=== PATIENT | male | born 1985 | race Caucasian/White ===

== ENCOUNTER 2020-09-14 14:56 | Emergency (ER) | payer MEDICAID, SELFPAY ==
[2020-09-14 15:00] VITALS: BP 173/89; PULSE 83; RESP 20; TEMP 36.4; O2SAT 99; BMI 35.2
[2020-09-14 17:07] LABS: Basophils Percent Auto 0.2 % (0-2); Eosinophils Percent Auto 0.2 % (0-4); Hematocrit 43.2 % (42-52); Hemoglobin 14.6 g/dl (14.0-18.0); Imm Gran Abs Auto 0.06 X10*3/uL (0.00-0.03); Imm Gran Pct Auto 0.4 % (0.0-0.4); Lymphocytes Absolute Auto 0.7 X10*3/uL (1.2-4.9); Lymphocytes Percent Auto 4.7 % (20-40); MANUAL DIFF FLAG SCAN; Mean Corpuscular HGB Conc 33.8 g/dl (31.0-36.0); Mean Corpuscular Hemoglobin 26.9 pg (27.0-33.0); Mean Corpuscular Volume 79.6 fL (80-98); Mean Platelet Volume 9.5 fL (9.4-12.4); Monocytes Absolute Auto 0.6 X10*3/uL (0.1-1.2); Monocytes Percent Auto 3.8 % (2-11); Neutrophils Absolute Auto 14.2 X10*3/uL (2.0-8.3); Neutrophils Percent Auto 90.7 % (45-73); Platelet Count 389 X10*3/uL (160-400); Red Blood Count 5.43 X10*6/uL (4.60-5.80); Red Cell Distribution Width 12.6 % (11.0-16.0); SCAN SMEAR FLAG 1; White Blood Count 15.7 X10*3/uL (4.8-10.8)
[2020-09-14 17:09] LABS: Glucose Urine UA NEG (NEG); Leukocyte Esterase Urine NEG (NEG); Nitrite Urine NEG (NEG); Urine Blood 3+ (NEG); Urine Ketones 5 MG/DL (NEG); Urine Protein 1+ MG/DL (NEG-TRACE)
[2020-09-14 17:10] LABS: Appearance Urine CLOUDY; Color Urine BROWN
[2020-09-14 17:19] LABS: Bacteria Urine 1+ /LPF; Mucus Urine 1+ /LPF; Squamous Epithelial Cell Urine 2+ /LPF
[2020-09-14 17:29] VITALS: BP 163/71; PULSE 98; RESP 16; TEMP 37; O2SAT 99
[2020-09-14 17:32] LABS: SLIDE REVIEW VERIFIED
[2020-09-14 17:36] LABS: Anion Gap 14 (12-20); Blood Urea Nitrogen 11 mg/dL (9-16); Calcium 9.8 mg/dL (8.4-10.2); Carbon Dioxide 26 mmol/L (22-29); Chloride 100 mmol/L (96-108); Creatinine Clr Calc Pharmacy 119.8; Estimated Glomerular Filt Rate > 60; Glucose Random 115 mg/dL (60-115); Potassium 4.8 mmol/L (3.3-5.1); Sodium 135 mmol/L (135-145)
[2020-09-14] MEDS: Lactated Ringers 1,000 ML 999 ML IV (17:46)
--- NOTE | 2020-09-14 17:57 | ED.MALEGU ---
HPI - Male Genitourinary General Chief complaint: Urogenital-Male Stated complaint: flank pain Time Seen by Provider: 09/14/20 17:24 Source: patient Mode of arrival: ambulatory Limitations: no limitations History of Present Illness HPI Narrative: Patient is a 34-year-old male no significant past medical history he has had left-sided flank pain, decreased urine output nausea and vomiting x1 day. He denies fevers. Patient states he passed a kidney stone it while he was waiting in the waiting room of the emergency department. He did take the stone and put it in the urine cup and given to the triage nurse. Patient denies any pain, blood in his urine and states since he passed the stone he has been able to urinate freely. Related Data Previous Rx's Medication Instructions Recorded nitrofurantoin monohyd/m-cryst 100 mg PO Q12H 5 Days #10 cap 09/14/20 [Macrobid] Allergies Allergy/AdvReac Type Severity Reaction Status Date / Time cefaclor [From Ceclor] Allergy Hives Verified 09/14/20 15:02 Review of Systems Review of Systems: Yes all other systems are reviewed and are negative [facility] Social History Social History Advance Directives: No Advance Directives Information Provided: Yes Physical Exam Vital Signs: Vital Signs: Last Vital Signs Temp 98.6 F 09/14/20 17:29 Pulse 98 09/14/20 17:29 Resp 16 09/14/20 17:29 BP 163/71 H 09/14/20 17:29 Pulse Ox 99 09/14/20 17:29 Body Mass Index 35.2 Const: General: cooperative, healthy appearing, comfortable, no acute distress and well developed Orientation/consciousness: patient oriented x3 Limitations: no limitations HENMT: Head: Yes normal to inspection Eyes: General: appearance normal, both eyes and all related structures Neck: Neck: Yes normal visual inspection and Yes full ROM Resp: Effort & Inspection: normal respiratory effort and able to speak in complete sentences Auscultation: clear to auscultation bilaterally Cardio: Rate: regular rate GI: Inspection: Yes normal to inspection Palpation (GI): Soft to palpation and nontender : General: Yes no CVA tenderness Back/Spine/Pelvis: Back: no CVA tenderness Skin: General skin exam: no rashes or lesions noted Neuro: General: patient oriented x3 Extrem: General: Yes normal to inspection Course Course Course Narrative: Patient is a 34-year-old male no significant past medical history he has had left-sided flank pain, decreased urine output nausea and vomiting x1 day. Patient passed the stone while he was in the waiting room. Was put in UA cup, ordered analysis of the stone, UA was positive for bacteria, mucous and wbc's and positive for blood, WBC elevated at 15.7, will give 1 dose of Macrobid and 1L LR, make sure patient has no problems with urination and likely discharge. Reevaluation(s) Reevaluation #1: Patient having no trouble urinating, in no pain and would like to go home, will discharge. Time: 19:39 [facility] - Male Genitourinary Lab Data Result diagrams: 09/14/20 16:47 09/14/20 16:47 Labs: Lab Results 09/14/20 09/14/20 09/14/20 Range/Units 16:47 16:47 16:47 WBC 15.7 H (4.8-10.8) X10*3/uL RBC 5.43 (4.60-5.80) X10*6/uL Hgb 14.6 (14.0-18.0) g/dl Hct 43.2 (42-52) % MCV 79.6 L (80-98) fL MCH 26.9 L (27.0-33.0) pg MCHC 33.8 (31.0-36.0) g/dl RDW 12.6 (11.0-16.0) % Plt Count 389 (160-400) X10*3/uL MPV 9.5 (9.4-12.4) fL Immature Gran % (Auto) 0.4 (0.0-0.4) % Neut % (Auto) 90.7 H (45-73) % Lymph % (Auto) 4.7 L (20-40) % Grand % (Auto) 3.8 (2-11) % Eos % (Auto) 0.2 (0-4) % Baso % (Auto) 0.2 (0-2) % Lymph # (Auto) 0.7 L (1.2-4.9) X10*3/uL Grand # (Auto) 0.6 (0.1-1.2) X10*3/uL Eos # (Auto) 0.0 (0.0-0.4) X10*3/uL Baso # (Auto) 0.0 (0.0-0.2) X10*3/uL Abs Immat Gran (auto) 0.06 H (0.00-0.03) X10*3/uL Absolute Neuts (auto) 14.2 H (2.0-8.3) X10*3/uL Absolute Nucleated RBC 0.000 (0.0-0.012) X10*3/uL Nucleated RBC % (auto) 0.0 (0.0-0.2) /100WBC Smear Tech's Comments VERIFIED Hold Blue Top SEE NOTE Sodium 135 (135-145) mmol/L Potassium 4.8 (3.3-5.1) mmol/L Chloride 100 (96-108) mmol/L Carbon Dioxide 26 (22-29) mmol/L Anion Gap 14 (12-20) BUN 11 (9-16) mg/dL Creatinine 1.13 (0.5-1.4) mg/dL Estim Creat Clear Calc 119.8 Estimated GFR > 60 Random Glucose 115 (60-115) mg/dL Calcium 9.8 (8.4-10.2) mg/dL Urine Color Urine Appearance Urine pH (5.0-8.0) Ur Specific [place] (1.005-1.025) Urine Protein (NEG-TRACE) MG/DL Urine Glucose (UA) (NEG) MG/DL Urine Ketones (NEG) MG/DL Urine Blood (NEG) Urine Nitrite (NEG) Ur Leukocyte Esterase (NEG) Urine RBC (0) /HPF Urine WBC (0-4) /HPF Ur Squamous Epith Cells /LPF Urine Bacteria /LPF Urine Mucus /LPF 09/14/20 Range/Units 16:54 WBC (4.8-10.8) X10*3/uL RBC (4.60-5.80) X10*6/uL Hgb (14.0-18.0) g/dl Hct (42-52) % MCV (80-98) fL MCH (27.0-33.0) pg MCHC (31.0-36.0) g/dl RDW (11.0-16.0) % Plt Count (160-400) X10*3/uL MPV (9.4-12.4) fL Immature Gran % (Auto) (0.0-0.4) % Neut % (Auto) (45-73) % Lymph % (Auto) (20-40) % Grand % (Auto) (2-11) % Eos % (Auto) (0-4) % Baso % (Auto) (0-2) % Lymph # (Auto) (1.2-4.9) X10*3/uL Grand # (Auto) (0.1-1.2) X10*3/uL Eos # (Auto) (0.0-0.4) X10*3/uL Baso # (Auto) (0.0-0.2) X10*3/uL Abs Immat Gran (auto) (0.00-0.03) X10*3/uL Absolute Neuts (auto) (2.0-8.3) X10*3/uL Absolute Nucleated RBC (0.0-0.012) X10*3/uL Nucleated RBC % (auto) (0.0-0.2) /100WBC Smear Tech's Comments Hold Blue Top Sodium (135-145) mmol/L Potassium (3.3-5.1) mmol/L Chloride (96-108) mmol/L Carbon Dioxide (22-29) mmol/L Anion Gap (12-20) BUN (9-16) mg/dL Creatinine (0.5-1.4) mg/dL Estim Creat Clear Calc Estimated GFR Random Glucose (60-115) mg/dL Calcium (8.4-10.2) mg/dL Urine Color BROWN Urine Appearance CLOUDY Urine pH 7.0 (5.0-8.0) Ur Specific [place] 1.020 (1.005-1.025) Urine Protein 1+ H (NEG-TRACE) MG/DL Urine Glucose (UA) NEG (NEG) MG/DL Urine Ketones 5 (NEG) MG/DL Urine Blood 3+ H (NEG) Urine Nitrite NEG (NEG) Ur Leukocyte Esterase NEG (NEG) Urine RBC 76-150 H (0) /HPF Urine WBC 1-4 (0-4) /HPF Ur Squamous Epith Cells 2+ /LPF Urine Bacteria 1+ /LPF Urine Mucus 1+ /LPF Discharge Plan Discharge Clinical Impression: Kidney calculus Urinary tract infection Qualifiers: Urinary tract infection type: acute cystitis Hematuria presence: with hematuria Qualified Code(s): N30.01 - Acute cystitis with hematuria Patient Disposition: Home, Self-Care Instructions: Kidney Stones (ED), Urinary Tract Infection in Men (ED) Additional Instructions: If you develop a fever or pain, please return to the emergency department. Otherwise, I have sent a prescription for your urinary tract infection to your pharmacy, please take it in full, as directed. Please also increase your fluids for the next few days. Prescriptions: New nitrofurantoin monohyd/m-cryst [Macrobid] 100 mg capsule 100 mg PO Q12H 5 Days Qty: 10 RF: 0
[2020-09-14] MEDS: Nitrofurantoin Monohyd/M-Cryst 100 MG CAPSULE PO (19:22)
== END 2020-09-14 19:54 | disposition home or self-care (01) ==
PROVIDERS: Emergency Provider Emergency Medicine
DX: N20.0 Calculus of kidney (principal); N30.01 Acute cystitis with hematuria; R10.9 Unspecified abdominal pain; Z79.899 Other long term (current) drug therapy
CPT/HCPCS: 36415; 80048; 81001; 85025; 99284

== ENCOUNTER 2022-09-15 17:37 | Emergency (ER) | payer BC, SELFPAY ==
--- NOTE | 2022-09-15 17:42 | ED_ITS ---
[facility] - General Adult General Chief complaint: Allergic Reaction Stated complaint: Allergic reaction to antibiotic Time Seen by Provider: 09/15/22 17:50 Source: patient, RN notes reviewed and old records reviewed Mode of arrival: ambulatory History of Present Illness [facility] narrative: 36-year-old male with no significant past medical history presenting to the ED complaining of suspected allergic reaction with tingling to lips/tongue and thro at closing sensation since 15:00 s/p taking newly prescribed Keflex. Patient admits was seen at urgent care yesterday diagnosed with possible UTI vs renal stone, started on Keflex and Flomax, patient reports known allergic reaction history to Cefaclor when he was a child. Reports had symptoms of intermittent flank pain, dysuria, and feeling of incomplete emptying 2-3 weeks ago, all symptoms resolved present. Took a total 4 doses of Keflex. Denies fever, chills, abdominal pain at present, flank pain, dysuria/hematuria Onset (ago): hour(s) Related Data Previous Rx's Medication Instructions Recorded nitrofurantoin 100 mg PO Q12H 5 days #10 caps 09/14/20 monohydrate/macrocrystals 100 mg capsule (Macrobid) Allergies Allergy/AdvReac Type Severity Reaction Status Date / Time [facility] Allergy Hives Verified 09/15/22 17:43 Review of Systems Review of Systems: Constitutional: No Fever, No Chills, No Fatigue, No Malaise ENT/Mouth: +throat closing sensation, No Ear Pain, No Nasal Congestion, No Hoarseness, No sore throat, No Rhinorrhea, No Swallowing Difficulty Eyes: No Eye Pain, No Swelling, No Redness Cardiovascular: No Chest Pain, No SOB Respiratory: No Cough, No Sputum, No Wheezing, No Dyspnea Gastrointestinal: No Nausea, No Vomiting, No Diarrhea, No Constipation, No Abdominal pain Genitourinary: No Dysuria, No Urinary Frequency, No Hematuria, No Urinary Incontinence/retention,, No Flank Pain, No Urinary Flow Changes, No Hesitancy Musculoskeletal: No joint pain, No Myalgias, No Joint Swelling Skin: No Skin Lesions, No rash Neuro: No Weakness, + Paresthesias,No Headache Yes all other systems are reviewed and are negative Constitutional: Constitutional: Reports as per [facility] Past Medical History Attestation statement: The following information was validated with the patient. Source: old records reviewed Social History Social History Advance Directives: No Advance Directives Information Provided: No Physical Exam ED Vital Signs: Vital Signs - 24 hr 09/15/22 17:43 Temperature 96.7 F L Pulse Rate 95 Respiratory Rate 18 Blood Pressure 152/96 H Pulse Oximetry 98 Oxygen Delivery Method Room Air BMI result Body Mass Index 41.6 Const General: cooperative, healthy appearing and no acute distress Orientation/consciousness: patient oriented x3 Limitations: no limitations HENMT Head: Yes normal to inspection and Yes atraumatic Ears: hearing grossly normal bilaterally General nose exam: Normal external nose present Face and sinus: Yes normal facial exam Mouth: Normal oral and palatal mucosa present Throat: Yes posterior oropharynx normal, Yes tonsils normal, Yes uvula midline, No peritonsillar mass, No uvula laterally displaced and No uvular edema Eyes General: appearance normal, both eyes and all related structures EOM: EOMs intact bilaterally Neck Neck: Yes normal visual inspection, Yes no lymphadenopathy, Yes no meningeal signs, Yes supple and No anterior neck swelling Resp Effort & Inspection: normal respiratory effort, no respiratory distress, no stridor and not tachypneic Auscultation: clear to auscultation bilaterally, no rales and no wheezes Cardio Rate: regular rate Heart sounds: S1 normal heart sound present and S2 normal heart sound present GI Inspection: Yes normal to inspection Palpation (GI): Soft to palpation, nontender, no guarding and not rigid General: Yes no CVA tenderness Back/Spine/Pelvis Back: no CVA tenderness Skin Rashes: no rashes Wounds: no wounds Neuro General: patient oriented x3, tone normal and no meningeal signs Gait exam (Neuro): Normal gait present Extrem General: Yes normal to inspection Course Course Course Narrative: RME performed by Ada Ochoa PA-C. Patient is a 36 year old assigned male at presenting to the emergency department with mouth tingling and throat tightness after 4 doses of keflex. Patient placed on antibiotics for a suspected UTI however, patient is describing kidney stone type symptoms rather than a UTI. UTI was diagnosed by an urgent care. Labs and UA ordered. Patient placed back in the waiting room pending room availability and results. --ED care transferred to [facility] pending labs, UA, and anticipated discharge -1900 - Patient's labs normal. UA shows blood consistent with previously passed kidney stone. Recommended patient stop taking the keflex and follow up with his primary care provider. Patient cleared for dischage. Medications Administered Discontinued Medications Generic Name Dose Route Start Last Admin Trade Name Sisi PRN Reason Stop Dose Admin Famotidine 20 mg 09/15/22 17:59 09/15/22 18:07 Famotidine 20 Mg Tablet PO 09/15/22 18:00 20 mg ONCE ONE Administration Medical Decision Making Medical Decision Making MDM Narrative: 36-year-old male with no significant past medical history presenting to the ED complaining of suspected allergic reaction with tingling to lips/tongue and throat closing sensation since 15:00 s/p taking newly prescribed Keflex. On exam vital signs stable, NAD, nontoxic appearing, talking in complete sentences, no respiratory distress, handling secretions, uvula midline, lungs CTA, abdomen soft/nontender, no CVAT. Concern for allergic reaction vs anxiety reaction vs ?possible UTI/renal stone or pyelo although patient asymptomatic at present. No evidence of anaphylaxis or [employer]. low suspicion for your abdominal pathology Plan: Labs, UA, PO Benadryl and Pepcid Please refer to course for remaining clinical decision making, interpretation of labs/imaging results, and discussions with consultants and/or family members. Differential Diagnosis Differential Diagnoses: The differential diagnosis associated with the presentation includes As above Admission/Observation Consideration of admission/observation: Escalation of care including admission/observation considered Lab Data [facility] Lab Attestation statement: I reviewed the patient's lab results. 09/15/22 18:21 09/15/22 18:21 Labs: Lab Results 09/15/22 09/15/22 09/15/22 Range/Units 18:21 18:21 18:26 WBC 10.8 (4.8-10.8) X10*3/uL RBC 5.53 (4.60-5.80) X10*6/uL Hgb 14.6 (14.0-18.0) g/dl Hct 43.2 (42.0-52.0) % MCV 78.1 L (80.0-98.0) fL MCH 26.4 L (27.0-33.0) pg MCHC 33.8 (31.0-36.0) g/dl RDW 12.5 (11.0-16.0) % Plt Count 389 (160-400) X10*3/uL MPV 9.4 (9.4-12.4) fL Immature Gran % (Auto) 0.3 (0.0-0.4) % Neut % (Auto) 50.9 (45-73) % Lymph % (Auto) 37.2 (20-40) % [place] % (Auto) 8.7 (2-11) % Eos % (Auto) 2.3 (0-4) % Baso % (Auto) 0.6 (0-2) % Lymph # (Auto) 4.0 (1.2-4.9) X10*3/uL [place] # (Auto) 0.9 (0.1-1.2) X10*3/uL Eos # (Auto) 0.3 (0.0-0.4) X10*3/uL Baso # (Auto) 0.1 (0.0-0.2) X10*3/uL Abs Immat Gran (auto) 0.03 (0.00-0.03) X10*3/uL Absolute Neuts (auto) 5.5 (2.0-8.3) x10*3/uL Absolute Nucleated RBC 0.000 (0.0-0.012) X10*3/uL Nucleated RBC % (auto) 0.0 (0.0-0.2) /100WBC Sodium 137 (135-145) mmol/L Potassium 4.3 (3.3-5.1) mmol/L Chloride 105 (96-108) mmol/L Carbon Dioxide 24 (22-29) mmol/L Anion Gap 12 (12-20) BUN 14 (9-16) mg/dL Creatinine 1.07 (0.5-1.4) mg/dL Estim Creat Clear Calc 131.4 Estimated GFR > 60 Random Glucose 123 H (60-115) mg/dL Calcium 9.5 (8.4-10.2) mg/dL Magnesium 2.1 (1.6-2.6) mg/dL Total Bilirubin 0.3 (0.0-1.0) mg/dL AST 23 (5-37) U/L ALT 84 H (0-40) U/L Alkaline Phosphatase 64 (39-117) U/L Total Protein 7.1 (6.5-8.0) g/dL Albumin 4.3 (3.5-5.0) g/dL Urine Color Yellow Urine Appearance Clear Urine pH 5.5 (5.0-9.0) Ur Specific [place] 1.020 (1.005-1.025) Urine Protein Negative (Neg-Trace) mg/dL Urine Glucose (UA) Negative (Negative) mg/dL Urine Ketones Negative (Negative) mg/dL Urine Blood Moderate (2+) H (Negative) Urine Nitrite Negative (Negative) Ur Leukocyte Esterase Negative (Negative) Urine RBC 11-20 H (0-2) /HPF Urine WBC 0-5 (0-5) /HPF Ur Squamous Epith Cells 0-2 (0-2) /HPF Urine Bacteria None Seen (None Seen) Hyaline Casts 0-2 (0-2) /LPF Radiology Impression Discussion of test interpretation with radiology: I have reviewed the radiologist's reading. External Record Review External record reviewed: Inpatient record, Office record, Outpatient record, Prior outpatient labs, Prior outpatient radiology, Primary care record and Outside ED record Tests considered The following testing was considered but not selected: As above Prescription Management I considered prescription management with: Pain Medication and Antibiotic Chronic Conditions Patient?s care impacted by: Other Discharge Plan Discharge Clinical Impression: Allergic reaction Patient Disposition: Home, Self-Care Instructions: Antibiotic Medication Allergy (ED), General Allergic Reaction (ED) Additional Instructions: Please discontinue previously prescribed Keflex. Take Benadryl as needed for allergic reaction symptoms. You may also take Claritin/Zyrtec or Pepcid to help with the allergic reaction. If you develops throat closing sensation, difficulty breathing, shortness of breath, wheezing, cough return to the ED immediately. Prescriptions: No Action nitrofurantoin monohyd/m-cryst [Macrobid] 100 mg capsule 100 mg PO Q12H 5 Days Qty: 10 0RF Rx Instructions: must administer with a meal/food Referrals: [facility] [place]] (Call to establish and follow up with a primary care provider. If you already have a primary care provider, please follow up with them.) [facility] Group] (Call to establish and follow up with a primary care provider. If you already have a primary care provider, please follow up with them.) [facility] [Provider Group] (Call to establish and follow up with a primary care provider. If you already have a primary care provider, please follow up with them.) Print Language: Khmer
[2022-09-15 17:43] VITALS: BP 152/96; PULSE 95; RESP 18; TEMP 35.9; O2SAT 98; BMI 41.6
[2022-09-15] MEDS: Famotidine 20 MG TABLET PO (18:07)
[2022-09-15 18:26] LABS: MANUAL DIFF FLAG NO
[2022-09-15 18:36] LABS: Basophils Absolute Auto 0.1 X10*3/uL (0.0-0.2); Basophils Percent Auto 0.6 % (0-2); Eosinophils Absolute Auto 0.3 X10*3/uL (0.0-0.4); Eosinophils Percent Auto 2.3 % (0-4); Hematocrit 43.2 % (42.0-52.0); Hemoglobin 14.6 g/dl (14.0-18.0); Imm Gran Abs Auto 0.03 X10*3/uL (0.00-0.03); Imm Gran Pct Auto 0.3 % (0.0-0.4); Lymphocytes Percent Auto 37.2 % (20-40); Mean Corpuscular HGB Conc 33.8 g/dl (31.0-36.0); Mean Corpuscular Hemoglobin 26.4 pg (27.0-33.0); Mean Corpuscular Volume 78.1 fL (80.0-98.0); Mean Platelet Volume 9.4 fL (9.4-12.4); Monocytes Absolute Auto 0.9 X10*3/uL (0.1-1.2); Monocytes Percent Auto 8.7 % (2-11); Neutrophils Absolute Auto 5.5 x10*3/uL (2.0-8.3); Neutrophils Percent Auto 50.9 % (45-73); Platelet Count 389 X10*3/uL (160-400); Red Blood Count 5.53 X10*6/uL (4.60-5.80); Red Cell Distribution Width 12.5 % (11.0-16.0); White Blood Count 10.8 X10*3/uL (4.8-10.8)
[2022-09-15 18:37] LABS: Appearance Urine Clear; Color Urine Yellow; Glucose Urine UA Negative (Negative); Leukocyte Esterase Urine Negative (Negative); Nitrite Urine Negative (Negative); PH 5.5 (5.0-9.0); UMIC TRIGGER UACC YES; Urine Blood Moderate (2+) (Negative); Urine Ketones Negative (Negative); Urine Protein Negative (Neg-Trace)
[2022-09-15 18:39] LABS: Bacteria Urine None Seen (None Seen); Hyaline Casts Urine 0-2 /LPF (0-2); Squamous Epithelial Cell Urine 0-2 /HPF (0-2); WBC Urine 0-5 /HPF (0-5)
[2022-09-15 18:54] LABS: Alanine Aminotransferase 84 U/L (0-40); Albumin Level 4.3 g/dL (3.5-5.0); Alkaline Phosphatase 64 U/L (39-117); Anion Gap 12 (12-20); Aspartate Amino Transferase 23 U/L (5-37); Bilirubin Total 0.3 mg/dL (0.0-1.0); Blood Urea Nitrogen 14 mg/dL (9-16); Calcium 9.5 mg/dL (8.4-10.2); Carbon Dioxide 24 mmol/L (22-29); Chloride 105 mmol/L (96-108); Creatinine Clr Calc Pharmacy 131.4; Estimated Glomerular Filt Rate > 60; Glucose Random 123 mg/dL (60-115); Magnesium 2.1 mg/dL (1.6-2.6); Potassium 4.3 mmol/L (3.3-5.1); Sodium 137 mmol/L (135-145); Total Protein 7.1 g/dL (6.5-8.0)
== END 2022-09-15 19:08 | disposition home or self-care (01) ==
PROVIDERS: Physician Assistant Medical; Emergency Provider Emergency Medicine Emergency Medical Services
DX: R20.2 Paresthesia of skin (principal); T78.40XA Allergy, unspecified, initial encounter; X58.XXXA Exposure to other specified factors, initial encounter
CPT/HCPCS: 36415; 80053; 81001; 83735; 85025; 99282; 99283

== ENCOUNTER 2023-12-09 15:33 | Emergency (ER) | payer BC, SELFPAY ==
[2023-12-09 15:41] VITALS: BP 156/84; PULSE 113; RESP 19; TEMP 36.8; O2SAT 96; BMI 39.5
--- NOTE | 2023-12-09 15:41 | ED_ITS ---
HPI - General Adult General Chief complaint: General Medical Stated complaint: multiple bee stings,redness swelling Time Seen by Provider: 12/09/23 17:50 Source: patient Mode of arrival: ambulatory Limitations: no limitations History of Present Illness ED Provider: Ada Ochoa PA-C HPI narrative: Patient is a 38 year old assigned male at with no reported medical history presenting to the emergency department today with multiple bee stings. 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 Patient states that he was working with his bees when one found a hole in his suit and stung him, then many more stung him. Patient states that he was stung on the face, neck, and back. Patient states that he is not allergic to bees that he knows of. Patient denies any dizziness, lightheadedness, abdominal pain, nausea, vomiting, fever, chills, blurry vision, double vision, loss of vision, chest pain, difficulty breathing, shortness of breath, back pain, night sweats, pain with urination, increased urinary frequency, increased urinary urgency, blood in his urine or stool, syncope or a near syncopal episode, bowel incontinence, bladder incontinence, or any other complaints at this time. Relieving factors: none Exacerbating factors: none Associated symptoms: denies other symptoms Treatments prior to arrival: none Related Data Previous Rx's ?Medication ?Instructions ?Recorded nitrofurantoin 100 mg PO Q12H 5 days #10 caps 09/14/20 monohydrate/macrocrystals 100 mg capsule (Macrobid) Allergies Allergy/AdvReac Type Severity Reaction Status Date / Time cefaclor [From [facility]] Allergy Hives Verified 12/09/23 15:46 Review of Systems Constitutional: Constitutional: Reports no additional constitutional complaints, Denies chills, Denies fever(s) and Denies night sweats Eyes: Eyes: Reports no additional eye complaints, Denies blurry vision, Denies change in vision, Denies diplopia, Denies eye discharge, Denies loss of vision and Denies eye pain ENT: Denies dizziness Cardiovascular: Cardiovascular: Reports no additional cardiovascular complaints, Denies chest pain, Denies lightheadedness, Denies Loss of Consciousness and Denies dyspnea Respiratory: Respiratory: Reports no additional respiratory complaints and Denies dyspnea Gastrointestinal: Gastrointestinal: Reports no additional gastrointestinal complaints, Denies abdominal pain, Denies melena, Denies hematochezia, Denies change in bowel habits and Denies change in stool character Genitourinary: Genitourinary: Reports no additional male genitourinary complaints, Denies hematuria, Denies oliguria, Denies difficulty urinating, Denies dysuria, Denies urinary frequency, Denies urinary hesitancy, Denies urinary incontinence and Denies urinary urgency Musculoskeletal: Musculoskeletal: Reports no additional musculoskeletal complaints, Denies numbness and Denies tingling Integumentary/Breasts: Comments: multiple bee stings Neurologic: Denies dizziness, Denies loss of vision, Denies numbness and Denies tingling Psychiatric: Psychiatric: Reports no additional psychiatric complaints Endocrine: Endocrine: Reports no additional endocrine complaints Hematologic/Lymphatic: Hematologic/Lymphatic: Reports no additional hematologic/lymphatic complaints Allergic/Immunologic: Allergic/Immunologic: Reports no additional allergic/immunologic complaints PMFSH Past Medical History Attestation statement: The following information was validated with the patient. Source: old records reviewed and nursing notes reviewed Social History Social History Advance Directives: No Advance Directives Information Provided: No Do you have a plan to hurt others: No Plan Physical Exam ED Vital Signs: Vital Signs - 24 hr 12/09/23 15:41 Temperature 98.2 F Pulse Rate 113 H Respiratory Rate 19 Blood Pressure 156/84 H Pulse Oximetry 96 Oxygen Delivery Method Room Air BMI result Body Mass Index 39.5 Skin Other: multiple bee stings Course Course Course Narrative: RME performed by Ada Ochoa PA-C. Patient is a 38 year old assigned male at presenting to the emergency department with multiple bee stings. 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 Patient states that he was working with his bees when one found a hole in his suit and stung him, then many more stung him. Patient states that he was stung on the face, neck, and back. Patient denies any history of allergies to bees and does not feel short of breath at this time. Detailed physical exam and review of systems are deferred to the sightseeing guide. Patient placed back in the waiting room pending room availability. Medical Decision Making Medical Decision Making MDM Narrative: Patient is a 38 year old assigned male at with no reported medical history presenting to the emergency department today with bee stings. Patient's limited physical exam performed in triage showed multiple bee stings. Patient left the department without completing treatment. Patient left the department before myself or any of the other emergency department clinicians could explain to or review with the patient; physical exam findings, test results, need or lack there of for additional testing, need or lack there of for a procedure to be performed, need or lack there of for hospital admission / transfer, need or lack there of for prescription medication, treatment options, or a treatment plan. Differential Diagnosis Differential Diagnoses: The differential diagnosis associated with the presentation includes Bee stings Localized swelling Admission/Observation Consideration of admission/observation: Escalation of care including admission/observation considered Patient would have been admitted to the hospital had he completed his work up and it had any findings where hospital admission was appropriate, his clinical presentation warranted hospital admission, had myself or any other emergency housekeeping department worker had the ability to discuss need or lack there of for hospital admission, and the patient hadn't left the department without completing treatment. Discharge Plan Discharge Clinical Impression: Bee sting Patient Disposition: Left W/O Completing Treatment Prescriptions: No Action nitrofurantoin monohyd/m-cryst [Macrobid] 100 mg capsule 100 mg PO Q12H 5 Days Qty: 10 0RF Rx Instructions: must administer with a meal/food Discharge Date/Time: 12/09/23 18:25
--- NOTE | 2023-12-09 16:42 | PC.NURSE ---
no answer in [id number]
--- NOTE | 2023-12-09 17:27 | PC.NURSE ---
no answer [id number]
== END 2023-12-09 18:25 | disposition left against medical advice (07) ==
LOC: HO.ED 18:05
PROVIDERS: Emergency Provider Emergency Medicine; PCP Physician Assistant
DX: T63.441A Toxic effect of venom of bees, accidental (unintentional), initial encounter (principal); Y92.89 Other specified places as the place of occurrence of the external cause
CPT/HCPCS: 99281

== ENCOUNTER 2024-10-15 14:13 | Emergency (ER) | payer OTHER, SELFPAY ==
[2024-10-15] VITALS (17 sets, daily range): BP systolic 91–136; BP diastolic 62–87; PULSE 74–110; RESP 12–21; TEMP 36.3–36.8; O2SAT 98–100; BMI 37.7
--- NOTE | ~2024-10-15 | XR_ITS ---
EXAMINATION: XR ANKLE, RIGHT CLINICAL INFORMATION: slip down stairs deformity COMPARISON: None available. TECHNIQUE: AP and cross lateral views of the right ankle. FINDINGS: There is an acute comminuted diagonally oriented disruption distal metaphysis of the fibula with the posterior lateral displacement of the distal fragment. There is a posterior and lateral position of the tibiotarsal joint. No gross acute cortical disruption in the medial malleolus. XR/XR ankle RT min 3V IMPRESSION: Acute comminuted lateral and posteriorly dislocated ankle fracture with the posterior lateral acute fracture distal metaphysis right fibula/lateral malleolus. Consider a classification Lauge-Alcazar type 3 without medial malleolus fracture Electronically signed by: Theodore Smith MD 10/15/2024 02:45 PM EDT
--- NOTE | ~2024-10-15 | XR_ITS ---
EXAMINATION: XR ANKLE, RIGHT CLINICAL INFORMATION: post reduction COMPARISON: None available. TECHNIQUE: AP and lateral views of the right ankle. FINDINGS: Splinting material overlies the right ankle. Previously seen bimalleolar fracture dislocation has been reduced. There is now gross anatomical orientation of the ankle joint. There is diffuse soft tissue swelling. XR/XR ankle RT min 3V IMPRESSION: Good interval reduction of fracture dislocation right ankle. Electronically signed by: Tom Lee MD 10/15/2024 03:24 PM EDT
--- NOTE | 2024-10-15 14:18 | ED_ITS ---
HPI - Extremity Injury (Lower) General Chief Complaint: Extremity Injury, Lower Stated Complaint: Ankle injury Time Seen by Provider: 10/15/24 14:22 Source: patient and family (patient's partner) Mode of arrival: wheelchair Limitations: no limitations History of Present Illness ED Provider: Ada Ochoa PA-C HPI Narrative: Patient is a 38 year old assigned male at with a history of HTN and depression presenting to the emergency department today with right ankle pain. Patient states that he twisted and landed on his right ankle while falling down a few stairs. Patient denies any head strike or loss of consciousness. Patient denies any dizziness, lightheadedness, abdominal pain, nausea, vomiting, fever, chills, blurry vision, double vision, loss of vision, chest pain, difficulty breathing, shortness of breath, back pain, night sweats, pain with urination, increased urinary frequency, increased urinary urgency, blood in his urine or stool, syncope or a near syncopal episode, bowel incontinence, bladder incontinence, or any other complaints at this time. Patient denies any PO intake today. Related Data Previous Rx's ?Medication ?Instructions ?Recorded nitrofurantoin 100 mg PO Q12H 5 days #10 ca ps 09/14/20 monohydrate/macrocrystals 100 mg capsule (Macrobid) Allergies Allergy/AdvReac Type Severity Reaction Status Date / Time cefaclor (From [facility]) Allergy Hives Verified 10/15/24 14:19 Review of Systems 2 Constitutional: Constitutional: Reports no additional constitutional complaints, Denies chills, Denies fever(s) and Denies night sweats Eyes: Eyes: Reports no additional eye complaints, Denies blurry vision, Denies change in vision, Denies diplopia, Denies eye discharge, Denies loss of vision and Denies eye pain ENT: Denies dizziness Cardiovascular: Cardiovascular: Reports no additional cardiovascular complaints, Denies chest pain, Denies lightheadedness, Denies Loss of Consciousness and Denies dyspnea Respiratory: Respiratory: Reports no additional respiratory complaints and Denies dyspnea Gastrointestinal: Gastrointestinal: Reports no additional gastrointestinal complaints, Denies abdominal pain, Denies melena, Denies hematochezia, Denies change in bowel habits and Denies change in stool character Genitourinary: Genitourinary: Reports no additional male genitourinary complaints, Denies hematuria, Denies oliguria, Denies difficulty urinating, Denies dysuria, Denies urinary frequency, Denies urinary hesitancy, Denies urinary incontinence and Denies urinary urgency Musculoskeletal: Musculoskeletal: Reports no additional musculoskeletal complaints, Denies numbness and Denies tingling Comments: Right ankle pain Neurologic: Denies dizziness, Denies loss of vision, Denies numbness and Denies tingling Psychiatric: Psychiatric: Reports no additional psychiatric complaints Endocrine: Endocrine: Reports no additional endocrine complaints Hematologic/Lymphatic: Hematologic/Lymphatic: Reports no additional hematologic/lymphatic complaints Allergic/Immunologic: Allergic/Immunologic: Reports no additional allergic/immunologic complaints PMFSH Past Medical History Attestation statement: The following information was validated with the patient. (all information validated with the patient's partner) Source: old records reviewed, nursing notes reviewed and other (patient's partner provided additional history and confirmed the history provided by the patient.) Social History Social History Alcohol intake: current Alcohol intake frequency: holidays/special occasions only Smoked in Last 30 Days: No Use of substances other than those prescribed or required for medical reasons: No Advance Directives: No Advance Directives Information Provided: No Do you have a plan to hurt others: No Plan Physical Exam 2 Vital Signs: Vital Signs: Last Vital Signs Temp 97.8 F 10/15/24 15:43 Pulse 74 10/15/24 15:55 Resp 12 10/15/24 15:55 BP 123/72 10/15/24 15:55 Pulse Ox 98 10/15/24 15:55 O2 Del Method Room Air 10/15/24 15:55 Oxygen Flow Rate 0 10/15/24 15:28 BMI result Body Mass Index 37.7 Const: General: cooperative, no acute distress, alert and awake Nutritional Appearance: well nourished Orientation/consciousness: patient oriented x3 HEENT: Head: Yes normal to inspection and Yes atraumatic Ears: hearing grossly normal bilaterally and external ears normal General nose exam: Normal external nose present, no nasal discharge noted and no epistaxis Face and sinus: Yes normal facial exam, No abrasion and No laceration Mouth: Normal oral and palatal mucosa present, no drooling and no muffled voice Eyes: General: appearance normal, both eyes and all related structures P eriorbital: periorbital findings normal Eyelids: Yes eyelids normal C onjunctivae: conjunctivae normal Pupils: Equal, round and reactive pupils present EOM: EOMs intact bilaterally Neck: Neck: Yes normal visual inspection, Yes full ROM and Yes no lymphadenopathy Resp: Effort & Inspection: normal respiratory effort and able to speak in complete sentences Neuro: General: patient oriented x3, moves all extremities and CN's II-XI intact bilaterally Cranial nerves: Yes Equal, round and reactive pupils present Cognition (Neuro): normal cognition Extrem: Other: obvious deformity present to the right ankle intact pulses to the right foot / lower extremity good movement of right toes good cap refill of right lower extremity ROM of ankle joint restricted secondary to pain General: Yes capillary refill normal Psych: Appearance: grossly normal Mental Status: mental status grossly normal Affect: normal affect Attitude: cooperative Thought process: N ormal thought process present Thought content: Normal thought content present Insight: Good insight present (Psych) Course Course Course Narrative: 10/15/24 1421 LJ Riley This is a Rapid Medical Examination (RME) performed by Jacky Dan PA-C in triage. Full HPI, ROS, assessment and treatment plan per primary provider in the Main ED. Hx: 38 yo M here w/ right ankle pain s/p trip and fall down stairs. States he was caring something while descending stairs, tripped and fell causing his right ankle/foot to get caught behind him. PE/vitals: noted ankle deformity to R ankle. cannot palpate PT or DP pulse. 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 Medications Administered Discontinued Medications Generic Name Dose Route Start Last Admin Trade Name Alexq PRN Reason Stop Dose Admin Fentanyl 25 mcg 10/15/24 15:27 10/15/24 15:44 Fentanyl Citrate/Pf 100 Mcg/2 Ml Vial IVPUSH 10/15/24 15:28 25 mcg ONCE ONE Administration Protocol Sodium Chloride 1,000 mls @ 999 mls/hr 10/15/24 14:45 10/15/24 14:56 Ns IV 10/15/24 15:45 999 mls/hr .Q1H1M ANTHNOY Administration Ketamine HCl 50 mg 10/15/24 14:32 10/15/24 15:02 Ketamine Hcl/Ns 50 Mg/5 Ml Syringe IVPUSH 10/15/24 14:33 25 mg ONCE ONE Administration Ondansetron HCl 4 mg 10/15/24 15:27 10/15/24 15:41 Ondansetron Hcl 4 Mg/2 Ml Vial IVPUSH 10/15/24 15:28 4 mg ONCE ONE Administration Propofol 100 mg 10/15/24 14:28 10/15/24 15:03 Propofol 200 Mg/20 Ml Vial IVPUSH 10/15/24 14:29 50 mg ONCE ONE Administration Medical Decision Making Medical Decision Making MDM Narrative: Patient is a 38 year old assigned male at with a history of HTN and depression presenting to the emergency department today with right ankle pain. Patient's physical exam was as noted in the physical exam portion of this note. Patient's blood work was unremarkable. Patient's right ankle x-ray showed an acute comminuted lateral and posteriorly dislocated ankle fracture with posterior lateral acute fracture of the distal metaphysis of the right fibula / lateral malleolus. I consulted with the orthopedic team who recommended reduction and splinting with a posterior short leg and stirrup splint. I explained my physical exam findings as well as all test results to the patient and the patient's partner. I answered all questions asked by the patient and the patient's partner. I obtained written consent from the patient for procedural sedation and fracture + dislocation reduction of the right ankle. Dr. Cat performed the conscious sedation with IV Ketamine and Propofol while I performed fracture / dislocation reduction and splint application. Sedation, reduction, and splint procedures all went without incident. Patient's PMS was intact prior to and after sedation, reduction, and splint. Post reduction x-ray confirmed successful reduction. Patient recovered well from sedation. Patient was given crutches with crutch instructions and demonstrated appropriate use in the department of said crutches. I stressed the importance of the patient taking his medication as directed (either prescribed or as the over the counter packaging recommends). I stressed the importance of the patient following up with his primary care provider and the orthopedic team. I stressed the importance of the patient returning to the emergency department immediately if his symptoms were to worsen or if he were to develop any dizziness, shortness of breath, difficulty breathing, chest pain, blurry vision, loss of vision, nausea, vomiting, abdominal pain, fever, chills, back pain, or any other complaints. Patient and the patient's partner verbalized agreement and understanding with this treatment plan and discharge. Differential Diagnosis Differential Diagnoses: The differential diagnosis associated with the presentation includes R ankle fracture R ankle dislocation Admission/Observation Consideration of admission/observation: Escalation of care including admission/observation considered Patient would have been admitted to the hospital had his work up had any findings where hospital admission was appropriate and his clinical presentation warranted hospital admission. Consult Healthcare Provider Management of the patient was discussed with: Mental Telepathist (I spoke with the orthopedic team as noted in the MDM Rationale portion of this note. ) Lab Data [facility] Lab Attestation statement: I reviewed the patient's lab results. My interpretation of these results are in the MDM Rationale portion of this note. 10/15/24 14:47 10/15/24 14:47 Labs: Lab Results 10/15/24 Range/Units 14:47 WBC 11.9 H (4.8-10.8) X10*3/uL RBC 5.03 (4.60-5.80) X10*6/uL Hgb 14.0 (14.0-18.0) g/dl Hct 39.8 L (42.0-52.0) % MCV 79.1 L (80.0-98.0) fL MCH 27.8 (27.0-33.0) pg MCHC 35.2 (31.0-36.0) g/dl RDW 13.0 (11.0-16.0) % Plt Count 433 H (160-400) X10*3/uL MPV 9.4 (9.4-12.4) fL Immature Gran % (Auto) 0.3 (0.0-0.4) % Neut % (Auto) 42.5 L (45-73) % Lymph % (Auto) 48.7 H (20-40) % Shelby % (Auto) 6.2 (2-11) % Eos % (Auto) 1.5 (0-4) % Baso % (Auto) 0.8 (0-2) % Lymph # (Auto) 5.8 H (1.2-4.9) X10*3/uL Shelby # (Auto) 0.7 (0.1-1.2) X10*3/uL Eos # (Auto) 0.2 (0.0-0.4) X10*3/uL Baso # (Auto) 0.1 (0.0-0.2) X10*3/uL Abs Immat Gran (auto) 0.03 (0.00-0.03) X10*3/uL Absolute Neuts (auto) 5.0 (2.0-8.3) x10*3/uL Absolute Nucleated RBC 0.000 (0.0-0.012) X10*3/uL Nucleated RBC % (auto) 0.0 (0.0-0.2) /100WBC Smear Tech's Comments VERIFIED Sodium 138 (135-145) mmol/L Potassium 3.9 (3.3-5.1) mmol/L Chloride 105 (96-108) mmol/L Carbon Dioxide 18 L (22-29) mmol/L Anion Gap 19 (12-20) BUN 11 (9-16) mg/dL Creatinine 1.04 (0.5-1.4) mg/dL Estim Creat Clear Calc 125.7 Estimated GFR > 60 Random Glucose 179 H (60-115) mg/dL Calcium 9.2 (8.4-10.2) mg/dL Total Bilirubin 0.6 (0.0-1.0) mg/dL AST 25 (5-37) U/L ALT 54 H (0-40) U/L Alkaline Phosphatase 72 (39-117) U/L Total Protein 7.5 (6.5-8.0) g/dL Albumin 4.5 (3.5-5.0) g/dL Independent Interpretation I performed an independent interpretation of an: Plain X-Ray Interpretation: My interpretation is in agreement with the radiologist's impression of these imaging studies. L EXAMINATION: XR ANKLE, RIGHT CLINICAL INFORMATION: slip down stairs deformity COMPARISON: None available. TECHNIQUE: AP and cross lateral views of the right ankle. FINDINGS: There is an acute comminuted diagonally oriented disruption distal metaphysis of the fibula with the posterior lateral displacement of the distal fragment. There is a posterior and lateral position of the tibiotarsal joint. No gross acute cortical disruption in the medial malleolus. XR/XR ankle RT min 3V IMPRESSION: Acute comminuted lateral and posteriorly dislocated ankle fracture with the posterior lateral acute fracture distal metaphysis right fibula/lateral malleolus. Consider a classification Lauge-Alcazar type 3 without medial malleolus fracture Electronically signed by: Theodore Smith MD 10/15/2024 02:45 PM EDT RP Dictated By: Theodore Perkins MD Signed By: Electronically signed by Theodore Madera MD 10/15/24 1445 EXAMINATION: XR ANKLE, RIGHT CLINICAL INFORMATION: post reduction COMPARISON: None available. TECHNIQUE: AP and lateral views of the right ankle. FINDINGS: Splinting material overlies the right ankle. Previously seen bimalleolar fracture dislocation has been reduced. There is now gross anatomical orientation of the ankle joint. There is diffuse soft tissue swelling. XR/XR ankle RT min 3V IMPRESSION: Good interval reduction of fracture dislocation right ankle. Electronically signed by: Tom Lee MD 10/15/2024 03:24 PM EDT RP Dictated By: Tom Lee MD Signed By: Electronically signed by Tom Lee MD 10/15/24 1524 Radiology Impression Discussion of test interpretation with radiology: I have reviewed the radiologist's reading. Independent Historian Clinical information obtained from an independent historian. History obtained from or confirmed by: Other (patient's partner provided additional history and confirmed the history provided by the patient.) Procedures Orthopedic Fracture Reduction Fracture #1: Time Out Performed: Yes Side: right Fracture Reduction Location: fibula Analgesia: procedural sedation Technique: direct manipulation Post Reduction X-rays Demonstrate: acceptable reduction Post-reduction neuro exam: intact Post-reduction vascular exam: intact Splint Applied: Yes Patient Tolerated Procedure: well Orthopedic Joint Reduction Joint #1: Time Out Performed: Yes Side: right Joint Reduction Location: ankle Analgesia: procedural sedation Technique used: traction/counter-traction and direct manipulation Post-reduction neuro exam: intact Post-reduction vascular: intact Post Reduction X-Ray Obtained: Yes Post Reduction X-Ray Results: reduced Splint Applied: Yes Patient Tolerated Procedure: well Orthopedic Splinting/Casting Injury #1: Side: right Lower Extremity Injury Location: ankle Lower Extremity Immobilizer: posterior splint and stirrup splint Other Orthopedic Equipment: crutches Procedural Sedation Indication: fracture/dislocation reduction Presedation Evaluation: HEALTHY NO ALLERGIES LAST PO YESTERDAY ASA Class: I Mallampati Class: I Preparation: color television console monitor applied, pulse oximeter, capnometry used, supplemental O2 applied, suction/airway equipment at bedside and IV secured Ketamine: IV Ketamine dose (mg): 25 IV Propofol dose (mg): 60 Patient Tolerated Procedure: well and no complications Complications: none Additional Comments: SEDATION WAS PERFORMED BY ME dR CAT Critical Care Time Critical Care Time Critical Care Time: Yes Total Critical Care Time: 58 Attestation: I spent 58 minutes of Critical Care Time with this patient. This does not include time spent on separately reported billable procedures. Discharge Plan Discharge Clinical Impression: Ankle fracture Qualifiers: Encounter type: initial encounter Fracture type: closed Laterality: right Q ualified Code(s): S82.891A - Other fracture of right lower leg, initial encounter for closed fracture Ankle dislocation Qualifiers: Encounter type: initial encounter Laterality: right Qualified Code(s): S93.04XA - Dislocation of right ankle joint, initial encounter Patient Disposition: Home, Self-Care Instructions: Ankle Fracture (DC), Crutch Instructions (ED), Ankle Dislocation (ED) Additional Instructions: Take Tylenol + Ibuprofen OTC for pain. Do NOT bear any weight on your right lower extremity. Whenever stationary - your right leg should be elevated with 2-3 pillows to reduce swelling. Do NOT get your splint wet. Do NOT remove your splint. If you have any change in sensation, movement, or color of your right toes - you may loosen the outer BOBO wraps. If you find yourself loosening the BOBO wraps to the point of seeing the white splint material underneath - STOP and proceed to your closest Emergency Department, immediately. Follow up with your primary care provider and the orthopedic team. Return to the emergency department immediately if your symptoms worsen or if you develop any numbness, tingling, dizziness, shortness of breath, difficulty breathing, chest pain, blurry vision, loss of vision, nausea, vomiting, abdominal pain, fever, chills, back pain, or any other complaints. Please see the information below about our Patient Portal. If you are not yet enrolled in the [facility] Patient Portal, you will receive an enrollment email invitation following your visit to any [facility] setting. You may also self-enroll in the Patient Portal by visiting our website: [email or web address] The following information is required to access the Patient Portal: - Your [facility] Medical Record Number - Your personal home email address (must match what is in your electronic medical record, Registration staff can assist with this) - Name - Date of Capabilities of the Patient Portal: - Message some providers - View upcoming appointments - Access your health summary, medical history, and visit history - View current conditions and allergies - View procedure and lab results - View your medications, including guidelines, side effects, and precautions - Complete pre-appointment questionnaires requested by your provider - Ready summary reports of your office visits and procedures To access the Patient Portal Mobile [employer], follow these directions: - Search [place] in the [employer] Store or [employer] Store - Download the [employer] - Search for [facility] - Enter your login/password Prescriptions: No Action nitrofurantoin monohyd/m-cryst [Macrobid] 100 mg capsule 100 mg PO Q12H 5 Days Qty: 10 0RF Rx Instructions: must administer with a meal/food Referrals: [facility] Family Medicine [Provider Group, Family Practice] Referral Note: Call to establish and follow up with a primary care provider. If you already have a primary care provider, please follow up with them[facility]] Referral Note: Call to establish and follow up with a primary care provider. If you already have a primary care provider, please follow up with them. [facility] [Provider Group, Internal Medicine] Referral Note: Call to establish and follow up with a primary care provider. If you already have a primary care provider, please follow up with them. [facility] Primary Care, [facility] [Provider Group, Primary Care] Referral Note: Call to establish and follow up with a primary care provider. If you already have a primary care provider, please follow up with them. [facility] Primary [facility] [Provider Group, Primary Care] Referral Note: Call to establish and follow up with a primary care provider. If you already have a primary care provider, please follow up with them. [facility] Orthopedic Surgeons [Provider Group] Referral Note: Call to establish and follow up with the orthopedic team for your right ankle fracture. Print Language: Hungarian
[2024-10-15 14:53] LABS: Basophils Absolute Auto 0.1 X10*3/uL (0.0-0.2); Basophils Percent Auto 0.8 % (0-2); Eosinophils Absolute Auto 0.2 X10*3/uL (0.0-0.4); Eosinophils Percent Auto 1.5 % (0-4); Hematocrit 39.8 % (42.0-52.0); Imm Gran Abs Auto 0.03 X10*3/uL (0.00-0.03); Imm Gran Pct Auto 0.3 % (0.0-0.4); Lymphocytes Absolute Auto 5.8 X10*3/uL (1.2-4.9); Lymphocytes Percent Auto 48.7 % (20-40); MANUAL DIFF FLAG SCAN; Mean Corpuscular HGB Conc 35.2 g/dl (31.0-36.0); Mean Corpuscular Hemoglobin 27.8 pg (27.0-33.0); Mean Corpuscular Volume 79.1 fL (80.0-98.0); Mean Platelet Volume 9.4 fL (9.4-12.4); Monocytes Absolute Auto 0.7 X10*3/uL (0.1-1.2); Monocytes Percent Auto 6.2 % (2-11); Neutrophils Percent Auto 42.5 % (45-73); Platelet Count 433 X10*3/uL (160-400); Red Blood Count 5.03 X10*6/uL (4.60-5.80); SCAN SMEAR FLAG 1; White Blood Count 11.9 X10*3/uL (4.8-10.8)
[2024-10-15] MEDS: 0.9 % Sodium Chloride 1,000 ML 999 ML IV (14:56)
[2024-10-15] MEDS: Ketamine HCl/NS 50 MG/5 ML SYRINGE IVPUSH (15:02)
[2024-10-15] MEDS: propofoL 200 MG/20 ML VIAL 100 MG IVPUSH (15:03)
[2024-10-15 15:09] LABS: Alanine Aminotransferase 54 U/L (0-40); Albumin Level 4.5 g/dL (3.5-5.0); Alkaline Phosphatase 72 U/L (39-117); Anion Gap 19 (12-20); Aspartate Amino Transferase 25 U/L (5-37); Bilirubin Total 0.6 mg/dL (0.0-1.0); Blood Urea Nitrogen 11 mg/dL (9-16); Calcium 9.2 mg/dL (8.4-10.2); Carbon Dioxide 18 mmol/L (22-29); Chloride 105 mmol/L (96-108); Creatinine Clr Calc Pharmacy 125.7; Estimated Glomerular Filt Rate > 60; Glucose Random 179 mg/dL (60-115); Potassium 3.9 mmol/L (3.3-5.1); Sodium 138 mmol/L (135-145); Total Protein 7.5 g/dL (6.5-8.0)
[2024-10-15 15:27] LABS: SLIDE REVIEW VERIFIED
[2024-10-15] MEDS: ondansetron HCL 4 MG/2 ML VIAL IVPUSH (15:41)
[2024-10-15] MEDS: fentaNYL citrate/PF 100 MCG/2 ML VIAL 25 MCG IVPUSH (15:44)
--- NOTE | 2024-10-15 16:33 | PC.NURSE ---
late note: pt arrived to ED s/p mechanical slip and fall down 3 steps while carrying a box - visible deformity to R ankle, diaphoretic, cool and clammy. a&ox4, vss, -ve head strike/LOC. provider at bedside to review procedure and sedation consent, documents signed. partner Lluvia at bedside - post sedation discharge paperwork reviewed. 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 20G PIV placed L AC and R AC, labs obtained, 1 L NS running per JUN. city wellness coordinator applied - NSR. pt trousers removed and returned to partner. resp at bedside, pt pre-oxygenated prior to sedation. suction and crash cart at bedside. timeout completed per pre procedure documentation. pre procedure sandy 10. 25mg ketamine given IVP at [address] Vega. 40mg propofol given IVP at [address] Vega, w additional 10mg given at 1504 for additional sedation. post administration RASS = -3. R ankle reduced by provider, vss throughout sedation. splinted by LJ Negron. XR at bedside for post reduction imaging. extremity elevated w pillows procedure end time: 1513. post procedure sandy 10, vss. pt medicated per JUN for 9 pain post reduction w positive effect. pt alert and oriented, maintaining airway independently, tolerating PO intake. hand off report given to Sharda Villanueva as primary RN at [phone].
== END 2024-10-15 16:59 | disposition home or self-care (01) ==
PROVIDERS: Physician Assistant Medical; Emergency Provider Emergency Medicine
DX: S82.891A Other fracture of right lower leg, initial encounter for closed fracture (principal); S93.04XA Dislocation of right ankle joint, initial encounter; M25.571 Pain in right ankle and joints of right foot; I10 Essential (primary) hypertension; W10.9XXA Fall (on) (from) unspecified stairs and steps, initial encounter; Y93.9 Activity, unspecified; Y92.9 Unspecified place or not applicable; Y99.8 Other external cause status
CPT/HCPCS: 27788; 29515; 36415; 73610; 80053; 85025; 96361; 96374; 96375; 99284; J2405; J2704; J3010

== ENCOUNTER → 2024-10-15 14:20 | Outpatient (BNV) | payer BC, SELFPAY | PROVIDERS: Visit Provider Radiology Diagnostic Radiology | DX: S82.452A Displaced comminuted fracture of shaft of left fibula, initial encounter for closed fracture (principal) | CPT/HCPCS: 73610 ==

== ENCOUNTER 2024-10-19 08:14 | Outpatient (REF) | payer OTHER, SELFPAY ==
--- NOTE | ~2024-10-19 | XR_ITS ---
CLINICAL HISTORY: M25.571 - Pain in right ankle and joints of right foot 3 view right ankle Comparison: CR/WI/SR - XR ANKLE RT MIN 3V - 10/15/24 15:10 EDT Findings: Improved alignment of distal fibular fracture. No significant loss of joint space, osteophytes, or erosions. No ankle effusion. Widening of the ankle mortise medially. No radiopaque foreign body. IMPRESSION: 1. Improved alignment of distal fibular fracture. 2. Widened medial ankle mortise, suggestive of deltoid ligament injury. This document has been electronically signed by: Prasanth Melendez MD on 10/19/2024 16:58:17
== END 2024-10-19 08:15 | disposition home or self-care (01) ==
LOC: HO.HOSX 08:14
DX: M25.571 Pain in right ankle and joints of right foot (principal)
CPT/HCPCS: 73610

== ENCOUNTER 2024-10-19 09:00 | Outpatient (AMB) | payer OTHER, SELFPAY ==
--- NOTE | 2024-10-19 09:02 | MHC.OFFVIS ---
Intake Visit Reasons: ER f/u- RT ankle fx dislocation discuss sx Intake Note: River is a 38 year old male who presents today for a new patient visit for his right ankle. Patient was seen at [facility] on 10/15/24 for this injury. He reports he twisted and landed on his right ankle while falling down a few stairs. Patient states he is having little to no pain. Patient reports to have mild swelling, causing numbness and tingling in toes. Allergies cefaclor (From Ceclor) Allergy (Verified 10/19/24 09:03) Hives HPI HPI ER f/u- RT ankle fx dislocation discuss sx: Details: River is a 38 year old male who presents today for a new patient visit for his right ankle. Patient was seen at [facility] on 10/15/24 for this injury. He reports he twisted and landed on his right ankle while falling down a few stairs. Patient states he is having little to no pain. Patient reports to have mild swelling, causing occasional numbness and tingling in toes. Normal sensation in the office today. Patient does report that the splint is digging into the posterior aspect of his knee, as there is an area of hard splint that is above the padding and Riley bandage. No other acute complaints or concerns at this time. [facility] Social History Alcohol intake: current Alcohol intake frequency: holidays/special occasions only Review of Systems Const All systems reviewed & are unremarkable except as noted in HPI and below Physical Exam Extrem Other: Splint on right ankle clean, dry, intact No evidence of surrounding erythema, ecchymosis No evidence of infection Patient is able to flex and extend the digits of the left foot without difficulty Distal sensation intact Capillary refill brisk Results Reviewed Results Reviewed: X-rays obtained in the office today and independently reviewed by vt, Brian Vigil PA-C, demonstrate displaced fracture of the lateral malleolus of the right ankle with evidence of mortise widening on oblique view. Assessment & Plan Assessment & Plan (1) Closed fracture of lateral malleolus of right ankle: Code(s): S82.61XA - Displaced fracture of lateral malleolus of right fibula, initial encounter for closed fracture Category: Medical Plan 1. Right lateral malleolus fracture with associated dislocation Date of injury and date of dislocation reduction 10/15/2024 Patient is discussed with Dr. Murphy, and a collaborative treatment plan was formed: I educated the patient about the condition. I discussed both operative and nonoperative treatment options. The patient would like to proceed with surgery. The risks and benefits of operative treatment were discussed with the patient and the patient wishes to proceed with surgery. These risks include, but are not limited to, risk of damage to blood vessels, nerves, tendons, infection, recurrence, incomplete relief of preoperative symptoms, persistent pain, possible need for further surgery, and the risks associated with regional blocks and/or anesthesia. Plan is to take the patient to the operating room on 10/21/2024 for the following procedures: 1. Right ankle ORIF under general All of the preoperative paperwork including the consent was discussed today. All of the patient's questions were answered in the clinic today. The patient understands that they will be in contact with our operating room surgical technologist to discuss scheduling their procedure. Patient denies diabetes, blood thinners, asthma, heart issues, lung issues, kidney issues, or current smoking. Orders: Orders XR ankle RT min 3V Today M25.571 - Pain in right ankle and joints of right foot Coding Level of Care Code New Pt Level 4 (03736) Diagnoses Closed fracture of lateral malleolus of right ankle S82.61XA
== END 2024-10-19 09:41 | disposition home or self-care (01) ==
LOC: HO.HOS 09:01
DX: S82.61XA Displaced fracture of lateral malleolus of right fibula, initial encounter for closed fracture (principal)
CPT/HCPCS: 99204

== ENCOUNTER → 2024-10-19 09:03 | Outpatient (BNV) | payer OTHER, SELFPAY | PROVIDERS: Visit Provider Radiology Diagnostic Radiology | DX: M25.571 Pain in right ankle and joints of right foot (principal) | CPT/HCPCS: 73610 ==

== ENCOUNTER 2024-10-21 11:17 | Day surgery (SDC) | payer OTHER, SELFPAY ==
[2024-10-21] VITALS (7 sets, daily range): BP systolic 105–127; BP diastolic 62–87; PULSE 76–110; RESP 16–20; TEMP 36.4–36.8; O2SAT 92–98; BMI 38.1
--- NOTE | ~2024-10-21 | FL_ITS ---
EXAMINATION: FL GUIDANCE ONLY HISTORY: ORIF right ankle fracture COMPARISON: Correlation is made with plain films of the right ankle dated 10/19/2024. TECHNIQUE: Fluoroscopy time: 0.1 minutes. Cumulative Dose: 0.406 mGy. DAP: 0.71043 mGym2 Images: 5. FINDINGS: Fluoroscopic spot films of the right ankle demonstrate internal fixation of the previously seen fracture of the distal fibula with a sideplate and multiple orthopedic screws. A metallic button is seen on the medial malleolus. FL/FL guidance in OR IMPRESSION: Fluoroscopy during procedure. Please see procedure report for additional information. Electronically signed by: Zenon Tobin MD 10/22/2024 07:07 AM EDT
--- NOTE | 2024-10-21 11:57 | P.CONAN_ITS ---
[facility] Active Problems Active Problems: All Active Problems (Updated 10/21/24 @ 11:53 by Leticia Quarles RN) Closed fracture of lateral malleolus of right ankle (Acute) Past Medical History Medical History (Updated 10/21/24 @ 11:53 by Leticia Quarles RN) Migraine HTN (hypertension) Family History Family history of problems with anesthesia: No Surgical History History of Problems with Anesthesia: No Social History Social History Alcohol intake: current Alcohol intake frequency: holidays/special occasions only Patient Tobacco Use Status: Never used Tobacco Have you been hit, kicked, punched, or otherwise hurt by someone within the past year? If so, by whom?: No Are you DNR?: No Advance Directives: No Advance Directives Information Provided: Yes Meds Allergies Allergy/AdvReac Type Severity Reaction Status Date / Time [facility] Allergy Hives Verified 10/19/24 09:03 Home Medications ?Medication ?Instructions ?Recorded ?Confirmed ?Last Taken ?Type lisinopril 20 mg tablet 20 mg PO DAILY blood pressur e 10/21/24 10/21/24 10/21/24 History Exam Height,Weight and Vital Signs: Height 5 ft 11 in Weight 124 kg Last Vital Signs Temp 98.3 F 10/21/24 11:49 Pulse 110 H 10/21/24 11:49 Resp 20 10/21/24 11:49 BP 124/87 10/21/24 11:49 Pulse Ox 97 10/21/24 11:49 O2 Del Method Room Air 10/21/24 11:49 Airway Mallampati Class: II TM Dist: >3cm Neck ROM: Full Heart: rrr Lungs: cta Assessment and Plan Assessment Anesthesia Assessment: Anesthesia Plan Discussed and Chart Reviewed Final Anesthetic Review Family History of Problems with Anesthesia: No History of Problems with Anesthesia: No NPO: Yes ASA Class: II Final Preanesthetic Review: No Changes in Pt Med Stat, Meds/Allgs Chart Reviewed and Consent Obtained/Reviewed Patient Risk: Low Procedure Risk: Low Anesthetic Plan Anesthetic Plan: GA Disposition: Standard PACU
[2024-10-21] MEDS: Lactated Ringers 1,000 ML 50 ML IVCONT (12:08)
--- NOTE | 2024-10-21 12:45 | MHC.SHP ---
Pre-Procedural Eval Section A - 24 Hr Update-Section A only Date of Service: 10/21/24 The patient is an INPATIENT: No Changes since office visit: No Cold of Flu in the past 2 weeks, No New Medical Problems, No Changes in Medication and No Patient answered all questions The patient has been examined within 24 hours of the surgical procedure. The History & Physical has been completed within 30 days and I have reviewed it.: Yes Section B - Complete if H&P > 30 days Chief Complaint: Displaced fracture of lateral malleolus of right Allergies: Allergies Allergy/AdvReac Type Severity Reaction Status Date / Time cefaclor (From Ceclor) Allergy Hives Verified 10/19/24 09:03 Plan I have reviewed the history and physical and performed a pertinent physical examination on my patient. No changes have occurred unless specified. Time Spent With Patient Time: Total time managing care of this patient today ____ minutes.
--- NOTE | 2024-10-21 14:10 | PM.OP ---
Brief Operative Note Date of Service: 10/21/24 Pre-op diagnosis: right ankle fx Post-op diagnosis: same Procedure: ORIF lateral mall ORIF syndesmosis Implants: [place]coran Pangea lateral locking plate adn syndesmosis [facility] Surgeon: Geoffrey Murphy MD Anesthesia: GETA and regional Was an Care Associate used for this Procedure?: Yes Care Associate: Kisha Quintanilla Estimated blood loss (mL): 25 Tourniquet time (min): 40 IV fluids (mL): 750 Pathology: none sent Condition: stable Disposition: PACU
[2024-10-21] MEDS: fentaNYL citrate/PF 100 MCG/2 ML VIAL 50 MCG IVPUSH (14:53)
--- NOTE | 2024-10-23 11:07 | W.PM.OPN ---
Operative Note Operative Note Date of Service: 10/21/24 Narrative: Date of Service: 10/21/24 Pre-op diagnosis: right ankle fx Post-op diagnosis: same Procedure: ORIF lateral mall ORIF syndesmosis Implants: [place] Pangea lateral locking plate and syndesmosis cinch Surgeon: Geoffrey Murphy MD Anesthesia: GETA and regional Was an Chief Librarian Extension Department used for this Procedure?: Yes Chief Librarian Extension Department: Kisha Quintanilla Estimated blood loss (mL): 25 Tourniquet time (min): 40 IV fluids (mL): 750 Pathology: none sent Condition: stable Disposition: PACU Procedure in detail: Patient was brought to the operating room and placed supine on the operative table. All bony prominences were well padded and a time-out was called to identify proper site proper procedure proper surgeon. IV antibiotics per weight were administered. I began by exsanguinating limb is slightly tourniquet to 300 mm Hg. I then made a standard posterolateral incision over the fibula. Full-thickness flaps were taken down to the fibular shaft and distal fibula. The fracture was identified and cleaned with a combination of curette, rongeur and irrigation. A lobster claw was used to provisionally reduce the fracture and a 4 hole distal fibular locking plate (Pangea, Danis) was applied using standard AO technique. Biplanar fluoroscopy was used to confirm hardware position and fracture reduction. Once I was satisfied that both of these were acceptable I irrigated copiously and turned my attention to the syndesmosis. This was tested using external rotation test and the medial clear space opened to measure more than 4 mm. Therefore I elected to place a syndesmosis cinch. Via the lateral locking plate a drill was used to drill parallel to the joint and at a slight angle from posterior to anterior through the medial tibia. A button was then threaded through and flipped on the medial cortex. Prior to this the entry site was drill to accommodate the cinch and lateral button. The lateral button was then placed in the cinch tightened. I then repeated the external rotation stress test and was satisfied with the maintenance and symmetry of the mortise. Therefore all instrumentation was removed and copious irrigation was performed. Absorbable suture and marissa were used for closure and the patient was placed into sterile dressings and a well-padded posterior splint. Tourniquet was let down and the patient was extubated brought to recovery room in stable condition there were no known complications.
== END 2024-10-21 15:34 | disposition home or self-care (01) ==
LOC: HO.SSS 11:19
PROVIDERS: Visit Provider Orthopaedic Surgery
PROC: (CPT 27792; principal; 2024-10-21 13:30)
DX: S82.61XA Displaced fracture of lateral malleolus of right fibula, initial encounter for closed fracture (principal); R20.0 Anesthesia of skin; R20.2 Paresthesia of skin; W10.9XXA Fall (on) (from) unspecified stairs and steps, initial encounter; X50.1XXA Overexertion from prolonged static or awkward postures, initial encounter; Y93.9 Activity, unspecified; Y92.9 Unspecified place or not applicable; Y99.9 Unspecified external cause status; I10 Essential (primary) hypertension; Z79.899 Other long term (current) drug therapy; Z88.8 Allergy status to other drugs, medicaments and biological substances
CPT/HCPCS: 27792; 27829; C1713; J0131; J0665; J0690; J1100; J2003; J2004; J2250; J2405; J2704; J3010

== ENCOUNTER → 2024-10-21 11:17 | Outpatient (BNV) | payer OTHER, SELFPAY | PROVIDERS: Visit Provider Orthopaedic Surgery | DX: S82.61XA Displaced fracture of lateral malleolus of right fibula, initial encounter for closed fracture (principal); S82.891A Other fracture of right lower leg, initial encounter for closed fracture | CPT/HCPCS: 27792 ==

== ENCOUNTER 2024-10-29 07:49 | Outpatient (REF) | payer OTHER, SELFPAY ==
--- NOTE | ~2024-10-29 | XR_ITS ---
EXAMINATION: XR ANKLE 3 OR MORE VIEWS RIGHT HISTORY: M25.571 - Pain in right ankle and joints of right foot COMPARISON: Comparison is made with the prior examination dated 10/19/2024. FINDINGS: Three views of the right ankle are submitted. Osseous mineralization is normal. Patient is status post internal fixation of the previously noted oblique fracture of the distal fibula with a sideplate and multiple orthopedic screws. A button is seen along the medial malleolus. The joint spaces are preserved. There is mild soft tissue swelling. XR/XR ankle RT min 3V IMPRESSION: Internal fixation of the previously seen oblique fracture of the distal fibula. Electronically signed by: Zenon Tobin MD 10/29/2024 09:33 AM EDT
== END 2024-10-29 07:50 | disposition home or self-care (01) ==
LOC: HO.HOSX 07:49
DX: M25.571 Pain in right ankle and joints of right foot (principal)
CPT/HCPCS: 29405; 73610

== ENCOUNTER 2024-10-29 09:18 | Outpatient (AMB) | payer OTHER, SELFPAY ==
--- NOTE | 2024-10-29 09:25 | MHC.OFFVIS ---
Vital Signs 10/29/24 09:33 Height 5 ft 11 in Weight 280 lb BMI 39.0 Intake Visit Reasons: PO RT ankle ORIF 10/21/24 NE Intake Note: River is a 39 year old male who presents today for a post operative visit s/p ORIF lateral mall & ORIF syndesmosis right ankle, DOS: 10/21/[address] Geoffrey Murphy. Patient reports his heel and the latreal aspect of the right ankle feels . Patient reports he has dicontinued the Percocet for pain. Denies any pain. Allergies cefaclor (From Ceclor) Allergy (Verified 10/29/24 09:33) Hives HPI HPI PO RT ankle ORIF 10/21/24 NE: Details: River is a 39 year old male who presents today for a post operative visit s/p ORIF lateral mall & ORIF syndesmosis right ankle, DOS: 10/21/[address] Geoffrey Murphy. Patient reports his heel and the latreal aspect of the right ankle feels . Patient reports he has dicontinued the Percocet for pain. Denies any pain. [facility] Medical History Migraine HTN (hypertension) Surgical History Status post open reduction with internal fixation (ORIF) of fracture of ankle (~10/21/24) Hx of wisdom tooth extraction Social History Alcohol intake: current Alcohol intake frequency: holidays/special occasions only Patient Tobacco Use Status: Never used Tobacco Review of Systems Const All systems reviewed & are unremarkable except as noted in HPI and below Physical Exam Vital Signs: BMI result Body Mass Index 39.0 Extrem Other: Incision sites on right ankle clean, dry, intact No evidence of surrounding erythema Ankle was noted to be ecchymotic No evidence of infection Patient is able to flex and extend the digits of the left foot without difficulty Distal sensation intact Capillary refill brisk Office Procedures Casting/Splints 88400-[id number] Leg Cast Application Procedure code (CPT) selection complete Results Reviewed Results Reviewed: X-rays obtained in the office today and independently reviewed by me, Brian Vigil PA-C, demonstrate status post ORIF of right ankle with all orthopedic hardware in place and in satisfactory clinical alignment. Assessment & Plan Assessment & Plan (1) Closed fracture of lateral malleolus of right ankle: Code(s): S82.61XA - Displaced fracture of lateral malleolus of right fibula, initial encounter for closed fracture Category: Medical Plan 1. Status post right ankle ORIF DOS 10/21/2024 Patient appears to be recovering well postoperatively Patient is educated about the typical recovery course Patient is placed into a short-leg cast at this time Nonweightbearing on right lower extremity Patient is educated on proper cast care and precautions Follow-up in 1 week with repeat x-rays for reassessment, sooner with any acute concerns Orders: Orders XR ankle RT min 3V Today M25.571 - Pain in right ankle and joints of right foot Coding Level of Care Code Global (27310) Diagnoses Closed fracture of lateral malleolus of right ankle S82.61XA CPT Codes Casting - CPT: 78825-Vtfav Leg Cast Application ([id number])
[2024-10-29 09:33] VITALS: BMI 39.0
== END 2024-10-29 10:38 | disposition home or self-care (01) ==
LOC: HO.HOS 09:18
DX: S82.61XA Displaced fracture of lateral malleolus of right fibula, initial encounter for closed fracture (principal)
CPT/HCPCS: 29405; 99024

== ENCOUNTER → 2024-10-29 09:19 | Outpatient (BNV) | payer OTHER, SELFPAY | PROVIDERS: Visit Provider Radiology Diagnostic Radiology | DX: M25.571 Pain in right ankle and joints of right foot (principal) | CPT/HCPCS: 73610 ==

== ENCOUNTER 2024-11-06 12:50 | Outpatient (AMB) | payer OTHER, SELFPAY ==
[2024-11-06 13:36] VITALS: BMI 39.0
--- NOTE | 2024-11-06 13:36 | A.OFFVIS_ITS ---
Vital Signs 11/06/24 13:36 Height 5 ft 11 in Weight 280 lb BMI 39.0 Intake Visit Reasons: PO RT ankle ORIF 10/21/24 NE Intake Note: River is a 39 year old male who presents today post-operatively status post ORIF lateral mall & ORIF syndesmosis right ankle, DOS: 10/21/[address] Murphy. Patient reports he is doing well. He is not taking anything for pain at this time. Short leg cast removed during intake. Allergies cefaclor (From Ceclor) Allergy (Verified 11/06/24 13:36) Hives HPI HPI PO RT ankle ORIF 10/21/24 NE: Details: River is a 39 year old male who presents today post-operatively status post ORIF lateral mall & ORIF syndesmosis right ankle, DOS: 10/21/[address] Murphy. Patient reports he is doing well. He is not taking anything for pain at this time. Short leg cast removed during intake. Patient reports that He has been totally compliant with nonweightbearing in the right lower extremity. [facility] Medical History Migraine HTN (hypertension) Surgical History Status post open reduction with internal fixation (ORIF) of fracture of ankle (~10/21/24) Hx of wisdom tooth extraction Social History Alcohol intake: current Alcohol intake frequency: holidays/special occasions only Patient Tobacco Use Status: Never used Tobacco Review of Systems Const All systems reviewed & are unremarkable except as noted in HPI and below Physical Exam Vital Signs: BMI result Body Mass Index 39.0 Extrem Other: Incision sites on right ankle clean, dry, intact No evidence of surrounding erythema Ankle was noted to be ecchymotic No evidence of infection Patient is able to flex and extend the digits of the left foot without difficulty Distal sensation intact Capillary refill brisk Assessment & Plan Assessment & Plan (1) Closed fracture of lateral malleolus of right ankle: Code(s): S82.61XA - Displaced fracture of lateral malleolus of right fibula, initial encounter for closed fracture Category: Medical Plan 1. Status post right ankle ORIF DOS 10/21/2024 Patient appears to be recovering well postoperatively Patient is educated about the typical recovery course Nilesh removed, Steri-Strips applied Patient is placed into a short-leg cast at this time Nonweightbearing on right lower extremity Patient is educated on proper cast care and precautions Follow-up in 4 week with repeat x-rays for reassessment, sooner with any acute concerns Orders: Orders XR ankle RT min 3V 11/06/24 M25.571 - Pain in right ankle and joints of right foot Coding Level of Care Code Global (03136) Diagnoses Closed fracture of lateral malleolus of right ankle S82.61XA
== END 2024-11-06 14:34 | disposition home or self-care (01) ==
LOC: HO.HOS 12:50
DX: S82.61XA Displaced fracture of lateral malleolus of right fibula, initial encounter for closed fracture (principal)
CPT/HCPCS: 99024

== ENCOUNTER 2024-11-06 12:50 | Outpatient (REF) | payer OTHER, SELFPAY ==
--- NOTE | ~2024-11-06 | XR_ITS ---
EXAMINATION: XR ANKLE 3 OR MORE VIEWS RIGHT HISTORY: M25.571 - Pain in right ankle and joints of right foot COMPARISON: Comparison is made with the prior examination dated 10/29/2024. FINDINGS: Three views of the right ankle are submitted. Osseous mineralization is normal. The patient is again noted to be status post internal fixation of an oblique fracture of the distal fibula. The fracture line remains visible. The joint spaces are preserved. The soft tissues are unremarkable. XR/XR ankle RT min 3V IMPRESSION: Internal fixation of an oblique fracture of the distal fibula without change. Electronically signed by: Zenon Tobin MD 11/06/2024 02:12 PM EDT
== END 2024-11-06 12:51 | disposition home or self-care (01) ==
LOC: HO.HOSX 12:50
DX: S82.61XA Displaced fracture of lateral malleolus of right fibula, initial encounter for closed fracture (principal); X58.XXXA Exposure to other specified factors, initial encounter; Y93.9 Activity, unspecified; Y92.9 Unspecified place or not applicable; Y99.9 Unspecified external cause status
CPT/HCPCS: 73610

== ENCOUNTER → 2024-11-06 13:20 | Outpatient (BNV) | payer OTHER, SELFPAY | PROVIDERS: Visit Provider Radiology Diagnostic Radiology | DX: M25.571 Pain in right ankle and joints of right foot (principal) | CPT/HCPCS: 73610 ==

== ENCOUNTER 2024-11-30 10:01 | Outpatient (REF) | payer OTHER, SELFPAY | END 2024-11-30 10:02 | disposition home or self-care (01) | LOC: HO.HOSX 10:01 | DX: Z13.89 Encounter for screening for other disorder (principal) ==

== ENCOUNTER 2024-11-30 10:01 | Outpatient (AMB) | payer OTHER, SELFPAY ==
--- NOTE | 2024-11-30 10:20 | MHC.OFFVIS ---
Vital Signs 11/30/24 10:21 Height 5 ft 11 in Weight 280 lb BMI 39.0 Intake Visit Reasons: PO: Cast Change - RT ankle ORIF 10/21/24 NE Intake Note: River is a 39 year old male who presents today for a cast change status post right ankle ORIF, DOS: 10/21/[address] Murphy. Patient reports his cast got a little wet while showering, primarily at the top. Paient continues to be non-weight bearing. Allergies cefaclor (From Ceclor) Allergy (Verified 11/06/24 13:36) Hives HPI HPI PO: Cast Change - RT ankle ORIF 10/21/24 NE: Details: River is a 39 year old male who presents today for a cast change status post right ankle ORIF, DOS: 10/21/[address] Murphy. Patient reports his cast got a little wet while showering, primarily at the top. Paient continues to be non-weight bearing. Patient reports that his pain has improved dramatically since surgery, experiences no pain at baseline. Patient inquires if we can potentially make him weight-bearing at this time, as this was the plan for his visit later this week. [facility] Medical History Migraine HTN (hypertension) Surgical History Status post open reduction with internal fixation (ORIF) of fracture of ankle (~10/21/24) Hx of wisdom tooth extraction Social History Alcohol intake: current Alcohol intake frequency: holidays/special occasions only Patient Tobacco Use Status: Never used Tobacco Review of Systems Const All systems reviewed & are unremarkable except as noted in HPI and below Physical Exam Vital Signs: BMI result Body Mass Index 39.0 Extrem Other: Incision sites on right ankle clean, dry, intact, well healed No evidence of surrounding erythema No ecchymosis No evidence of infection Patient is able to flex and extend the digits of the left foot without difficulty Range of motion of the right ankle is limited, but patient is able to dorsi and plantar flex in the limited capacity. Distal sensation intact Capillary refill brisk Results Reviewed Results Reviewed: X-rays obtained in the office today and independently reviewed by me, Brian Vigil PA-C, demonstrate status post ORIF of right ankle with all orthopedic hardware in place and in satisfactory clinical alignment. Assessment & Plan Assessment & Plan (1) Closed fracture of lateral malleolus of right ankle: Code(s): S82.61XA - Displaced fracture of lateral malleolus of right fibula, initial encounter for closed fracture Category: Medical Plan 1. Status post right ankle ORIF DOS 10/21/2024 Patient appears to be recovering well postoperatively Patient is educated about the typical recovery course At this time, case was discussed with Dr. Murphy, and due to the patient's lack of symptoms and good healing seen of both incision sites and x-rays, both him and I feel we can remove the patient from a cast and allow him to weightbear in a tall walking boot Patient is educated that he should not be weight-bearing outside of the boot at this time PT referral is placed for range of motion and gentle strengthening of the right ankle Patient is educated on range of motion exercises he can perform prior to be evaluated by Physical therapy Patient understands this in his amenable to this plan Patient is educated on the worrisome signs and symptoms of infection or injury to the area, and is educated that he should call us for reassessment if he begins to experience any of these Follow-up in 6 weeks with repeat x-rays for reassessment, sooner with any acute concerns Orders: Orders XR ankle RT min 3V 11/30/24 M25.571 - Pain in right ankle and joints of right foot PT Evaluation and Treatment Today S82.61XA - Displaced fracture of lateral malleolus of right fibula, initial encounter for closed fracture Coding Level of Care Code Global (45062) Diagnoses Closed fracture of lateral malleolus of right ankle S82.61XA
[2024-11-30 10:21] VITALS: BMI 39.0
== END 2024-11-30 11:51 | disposition home or self-care (01) ==
LOC: HO.HOS 10:02
DX: S82.61XA Displaced fracture of lateral malleolus of right fibula, initial encounter for closed fracture (principal)
CPT/HCPCS: 99024

== ENCOUNTER 2024-11-30 10:50 | Outpatient (REF) | payer OTHER, SELFPAY ==
--- NOTE | ~2024-11-30 | XR_ITS ---
EXAMINATION: XR ANKLE, RIGHT CLINICAL INFORMATION: M25.571 - Pain in right ankle and joints of right foot COMPARISON: October 15 and November 06, 2024 TECHNIQUE: AP, lateral, and mortise views of the right ankle. FINDINGS: Skin marissa over the lateral malleolus and medial malleolus have been removed. Metallic button over the medial malleolus associated with the syndesmotic repair is again seen. Lateral plate and screws are intact across the distal fibula. There is no widening of the syndesmosis. Ankle mortise is congruent. XR/XR ankle RT min 3V IMPRESSION: Stable postoperative changes. Electronically signed by: Gaston Serna MD 11/30/2024 11:23 AM EDT
== END 2024-11-30 10:51 | disposition home or self-care (01) ==
LOC: HO.XRAY 10:50
DX: M25.571 Pain in right ankle and joints of right foot (principal)
CPT/HCPCS: 73610

== ENCOUNTER → 2024-11-30 10:55 | Outpatient (BNV) | payer OTHER, SELFPAY | PROVIDERS: Visit Provider Radiology Diagnostic Radiology | DX: M25.571 Pain in right ankle and joints of right foot (principal) | CPT/HCPCS: 73610 ==

== ENCOUNTER 2025-01-12 11:03 | Outpatient (REF) | payer OTHER, SELFPAY ==
--- NOTE | ~2025-01-12 | XR_ITS ---
EXAMINATION: XR ANKLE, right CLINICAL INFORMATION: M25.571 - Pain in right ankle and joints of right foot COMPARISON: December 01, 2027 TECHNIQUE: AP, lateral, and mortise views lower extremity joint, ankle. FINDINGS: Lateral plate and screws traverse an oblique fracture extending above the syndesmotic ligament. There has also been stabilization of the syndesmosis with one metallic button in the lateral plate and one along the medial tibial metaphysis. There is visible new heterotopic bone formation in the interosseous space between the distal fibular diaphysis and the adjacent tibial metadiaphysis. Early new bone formation is also visible across the fracture line. Ankle mortise is congruent. There is no widening of the syndesmosis. Talar dome is intact. There is a small plantar calcaneal enthesophyte. XR/XR ankle RT min 3V IMPRESSION: Healing distal fibular fracture post-ORIF. Electronically signed by: Gaston Serna MD 01/12/2025 01:15 PM EDT
== END 2025-01-12 11:04 | disposition home or self-care (01) ==
LOC: HO.HOSX 11:03
DX: M25.571 Pain in right ankle and joints of right foot (principal)
CPT/HCPCS: 73610

== ENCOUNTER 2025-01-12 13:03 | Outpatient (AMB) | payer OTHER, SELFPAY ==
[2025-01-12 13:12] VITALS: BMI 39.0
--- NOTE | 2025-01-12 13:12 | A.OFFVIS_ITS ---
Vital Signs 01/12/25 13:12 Height 5 ft 11 in Weight 280 lb BMI 39.0 Intake Visit Reasons: PO RT ankle ORIF 10/21/24 NE with Xray Intake Note: River is a 39 year old male who presents today post-operatively status post Right Ankle ORIF, DOS: 10/21/[address] Murphy. On 11/30/24 patient was transitioned to a tall walking boot, allowing him to bear weight, however he was advised not be weight-bearing outside of the boot. A referral to Physical Therapy was placed. Patient reports today he has been going to PT as referred, using the boot for some of the exercises. He continues using the boot while weight bearing. He denies any new symptoms or concerns today. Allergies cefaclor (From Ceclor) Allergy (Verified 01/12/25 13:14) Hives HPI HPI PO RT ankle ORIF 10/21/24 NE with Xray: Details: River is a 39 year old male who presents today post-operatively status post Right Ankle ORIF, DOS: 10/21/[address] Murphy. On 11/30/24 patient was transitioned to a tall walking boot, allowing him to bear weight, however he was advised not be weight-bearing outside of the boot. A referral to Physical Therapy was placed. Patient reports today he has been going to PT as referred, using the boot for some of the exercises. He continues using the boot while weight bearing. He denies any new symptoms or concerns today. [facility] Medical History Migraine HTN (hypertension) Surgical History Status post open reduction with internal fixation (ORIF) of fracture of ankle (~10/21/24) Hx of wisdom tooth extraction Social History Alcohol intake: current Alcohol intake frequency: holidays/special occasions only Patient Tobacco Use Status: Never used Tobacco Review of Systems Const All systems reviewed & are unremarkable except as noted in HPI and below Physical Exam Vital Signs: BMI result Body Mass Index 39.0 Extrem Other: Incision sites on right ankle clean, dry, intact, well healed No evidence of surrounding erythema No ecchymosis No evidence of infection Patient is able to flex and extend the digits of the left foot without difficulty Patient is able to dorsi and plantar flex the left ankle fully and without difficulty Distal sensation intact Capillary refill brisk Results Reviewed Results Reviewed: X-rays obtained in the office today and independently reviewed by me, Brian Vigil PA-C, demonstrate status post ORIF of right ankle with all orthopedic hardware in place and in satisfactory clinical alignment. Assessment & Plan Assessment & Plan (1) Closed fracture of lateral malleolus of right ankle: Code(s): S82.61XA - Displaced fracture of lateral malleolus of right fibula, initial encounter for closed fracture Category: Medical Plan 1. Status post right ankle ORIF DOS 10/21/2024 Patient appears to be recovering well postoperatively Patient is educated about the typical recovery course At this time, case was discussed with Dr. Murphy, and due to the patient's lack of symptoms and good healing seen of both incision sites and x-rays, both him and I feel we can remove the patient from the boot and allow him to gradually weight bear out of it any lace-up ankle brace Patient is educated that if he begins to experience any significant increase in pain while not wearing the boot, he should once again go back to being nonweightbearing and call our office PT should be continued for range of motion and gentle strengthening of the right ankle Patient is educated on range of motion exercises he can perform prior to be evaluated by Physical therapy Patient understands this in his amenable to this plan Patient is educated on the worrisome signs and symptoms of infection or injury to the area, and is educated that he should call us for reassessment if he begins to experience any of these Follow-up in 6 weeks with repeat x-rays for reassessment, sooner with any acute concerns Orders: Orders XR ankle RT min 3V 01/12/25 M25.571 - Pain in right ankle and joints of right foot Coding Level of Care Code Est Pt Level 3 (76687) Diagnoses Closed fracture of lateral malleolus of right ankle S82.61XA
== END 2025-01-12 14:10 | disposition home or self-care (01) ==
LOC: HO.HOS 13:03
DX: S82.61XA Displaced fracture of lateral malleolus of right fibula, initial encounter for closed fracture (principal)
CPT/HCPCS: 99024

== ENCOUNTER → 2025-01-12 13:05 | Outpatient (BNV) | payer OTHER, SELFPAY | PROVIDERS: Visit Provider Radiology Diagnostic Radiology | DX: M25.571 Pain in right ankle and joints of right foot (principal) | CPT/HCPCS: 73610 ==

== ENCOUNTER 2025-01-20 13:55 | Outpatient (RCR) | payer OTHER, SELFPAY ==
--- NOTE | 2024-12-15 15:06 | MHC.PT.EP ---
[facility] [place] Office [place] Office [place] Office [address] Carloz Phipps [address] [phone] F: [phone] F: [phone] F: [phone] F: [phone] Physical Therapy Plan of Care Date of Evaluation: 12/15/24 Date of Surgery: 10/21/24 Diagnosis: S/P ORIF Rt CLOSED FX LATERAL MALLEOLUS W Danis Pangea lateral locking plate and syndesmosis cinch-> PT referral is placed for range of motion and gentle strengthening of the right ankle, WBAT Rt LE (IN AIRCAST BOOT) Assessment: 39 YO MALE WHO IDENTIFIES THEY/THEM, REF TO PT S/P FALLING ON STAIRS AND REQ Rt LATERAL MALLEOLUS AND SYNDESMOSIS ANKLE ORIF W Dansi Pangea lateral locking plate and syndesmosis cinch ON September. THEY HAVE BEEN NWB Rt LE UNTIL ORTHO F/U 12/04/2024 AT WHICH POINT THEY WERE ISSUED AN AIRCAST BOOT AND CLEARED FOR Rt LE WBAT. THEY PRESENT AMB W/O ASST DEVICES, WBAT IN Rt AIRCAST WALKING BOOT. THEY RESIDE IN A 3RD FLOOR APT AND ARE CURRENTLY UNEMPLOYED. THEY HAVE THE POST-OP COMPLICATIONS OF DISTAL LE SWELLING, HYPOMOBILE INCISIONAL SCARS, DECR ROM Rt ANKLE/ HIP, STRENGTH DEFICITS IN Rt LE, AND ALTERED GAIT/ FUNCTIONAL MOBILITY. THE Pt IS MOTIVATED FOR PT AND OPTIMIZING THEIR FUNCTIONAL INDEPENDENCE. Frequency and Duration: The patient will be seen 2 x WK x 8 WKS Short Term Goals: REDUCE Rt DISTAL LE PAIN TO 2-3/10 DECREASE SWELLING DISTAL Rt LE, IMPROVE SCAR MOBILITY Rt LAT ANKLE INITIATE ROM Rt ANKLE, HIP FLEX IMPROVE GAIT MECH, WBAT Rt LE (CURRENTLY W AIRCAST BOOT Rt) Custodial Goals: Pt INDEP W HEP AND SX MGMT WFL AROM Rt ANKLE WFL STRENGTH Rt LE Treatment Plan: Modalities to reduce pain, spasms and effusion. Manual therapy to restore motion and function. Therapeutic exercise to improve strength and flexibility. Neuromuscular re-education for posture and balance. Therapeutic activities to return to functional activities of daily living. Electronically signed by: MAURO DAVIS,PT Please sign and return to therapist. Thank you for your referral.
--- NOTE | 2025-03-09 15:16 | MHC.PT.DC ---
[facility] [place] Office [place] Office [place] Office [address] Carloz Phipps [address] [phone] F: [phone] F: [phone] F: [phone] F: [phone] Physical Therapy Discharge Report Diagnosis: S/P ORIF Rt CLOSED FX LATERAL MALLEOLUS W Danis Pangea lateral locking plate and syndesmosis cinch-> PT referral is placed for range of motion and gentle strengthening of the right ankle, WBAT Rt LE (IN AIRCAST BOOT) Date of Surgery: 10/21/24 Date of Evaluation: 12/15/24 Date of Discharge: 03/09/25 Treatments to Date: 9 Cancellations to Date: 3 No Shows to Date: Discharge Status: Achieved Goals Improved Function Independent with HEP Discharge Summary: [place] DID NOT ATTEND HIS LAST 3 SCHED PT APPTS... HOWEVER, AT LAST ATTENDED, HE PERF PROGR THER EXER W/O ADVERSE RESPONSE, HE HAD SOME DIFFIC REDUCING HABITUAL Rt HIP ER, IT DOES HELP TO VC RE INCR GREAT TOE PUSH OFF... WE ADDRESSED ECCENTRIC CONTROL W STEP DOWNS Rt LE AND HE NOTED AFTER PERF THE ABOVE HE FELT LOOSER - HE WAS UTILIZING HIS LACE-UP SUPPORT AT THE TIME OF LAST PT APPT. HE IS D/C THIS DATE PER PT ATTENDANCE POLICY. Electronically signed by: MAURO DAVIS,PT Please sign and return to therapist. Thank you for your referral.
== END 2025-03-09 15:20 | disposition home or self-care (01) ==
LOC: HO.PT 13:55
DX: S82.61XD Displaced fracture of lateral malleolus of right fibula, subsequent encounter for closed fracture with routine healing (principal); W10.9XXD Fall (on) (from) unspecified stairs and steps, subsequent encounter
CPT/HCPCS: 97110; 97112; 97140; 97162

== ENCOUNTER 2025-03-02 13:17 | Outpatient (REF) | payer OTHER, SELFPAY ==
--- NOTE | ~2025-03-02 | XR_ITS ---
EXAMINATION: XR ANKLE, RIGHT CLINICAL INFORMATION: M25.571 - Pain in right ankle and joints of right foot COMPARISON: Most recently 11/30/2024, and dating back to 10/15/2024. TECHNIQUE: AP, lateral, and mortise views of the right ankle. FINDINGS: Redemonstration of lateral plate and screw fixation of distal fibular fracture. There is a syndesmotic stabilization device in place. The hardware appears intact, well seated, without periprosthetic lucency. Fracture lines appear indistinct, sclerotic, with evidence of periosteal new bone formation and healing. There is visible new heterotopic bone formation in the interosseous space between the distal fibular diaphysis and the adjacent tibial metadiaphysis. The mortise is intact. The talar dome is normal. The subtalar joints appear normal. There is a tiny plantar calcaneal spur. There is no soft tissue abnormality. XR/XR ankle RT min 3V IMPRESSION: Continued interval healing with stable anatomical alignment. No hardware complication. Electronically signed by: Tom Lee MD 03/02/2025 01:58 PM EST
== END 2025-03-02 13:18 | disposition home or self-care (01) ==
LOC: HO.HOSX 13:17
DX: S82.61XD Displaced fracture of lateral malleolus of right fibula, subsequent encounter for closed fracture with routine healing (principal); Z96.7 Presence of other bone and tendon implants; X58.XXXD Exposure to other specified factors, subsequent encounter
CPT/HCPCS: 73610

== ENCOUNTER 2025-03-02 13:17 | Outpatient (AMB) | payer OTHER, SELFPAY ==
--- NOTE | 2025-03-02 13:40 | A.OFFVIS_ITS ---
Vital Signs 03/02/25 13:44 Height 5 ft 11 in Weight 280 lb BMI 39.0 Intake Visit Reasons: ov RT ankle ORIF 10/21/24 NE with Xray Intake Note: River is a 39 year old male who presents today for Follow Up status post Right Ankle ORIF, DOS: 10/21/[address] Murphy. At his last visit, patient was transitioned to a lace-up ankle brace. Patient was advised to continue Physical Therapy. At today's visit he states that he has completed physical therapy and he feels that he has seen improvements. He noted that the left side of his great toe is still numb but he added that has not changed since surgery. Allergies cefaclor (From [facility]) Allergy (Verified 01/12/25 13:14) Hives HPI HPI ov RT ankle ORIF 10/21/24 NE with Xray: Details: River is a 39 year old male who presents today for Follow Up status post Right Ankle ORIF, DOS: 10/21/[address] Murphy. At his last visit, patient was transitioned to a lace-up ankle brace. Patient was advised to continue Physical Therapy. At today's visit he states that he has completed physical therapy and he feels that he has seen improvements. Patient states that he has full range of motion, and feels that he is ready to return to full normal activity. No other acute complaints or concerns at this time. [facility] Medical History Migraine HTN (hypertension) Surgical History Status post open reduction with internal fixation (ORIF) of fracture of ankle (~10/21/24) Hx of wisdom tooth extraction Social History (Updated 03/02/25 @ 13:47 by Chelsea Valdez) Alcohol intake: current Alcohol intake frequency: holidays/special occasions only Patient Tobacco Use Status: Never used Tobacco Current occupational status: unemployed Review of Systems Const All systems reviewed & are unremarkable except as noted in HPI and below Physical Exam Vital Signs: BMI result Body Mass Index 39.0 Extrem Other: Incision sites on right ankle clean, dry, intact, well healed No evidence of surrounding erythema No ecchymosis No evidence of infection Patient is able to flex and extend the digits of the left foot without difficulty Patient is able to dorsi and plantar flex the left ankle fully and without difficulty Distal sensation intact Capillary refill brisk Results Reviewed Results Reviewed: X-rays obtained in the office today and independently reviewed by me, Brian Vigil PA-C, demonstrate status post ORIF of right ankle with all orthopedic hardware in place and in satisfactory clinical alignment. Assessment & Plan Assessment & Plan (1) Closed fracture of lateral malleolus of right ankle: Code(s): S82.61XA - Displaced fracture of lateral malleolus of right fibula, initial encounter for closed fracture Category: Medical Plan 1. Status post right ankle ORIF DOS 10/21/2024 Patient appears to be recovering well postoperatively Patient is educated about the typical recovery course At this time, case was discussed with Dr. Murphy, and due to the patient's lack of symptoms and good healing seen of both incision sites and x-rays, I feel it is safe for the patient to return to full normal activity Patient is educated that if he begins to experience any significant increase in pain, he should put the boot back on and return to our office PT should be continued for range of motion and gentle strengthening of the right ankle Patient is educated on range of motion exercises he can perform prior to be evaluated by Physical therapy Patient understands this in his amenable to this plan Patient is educated on the worrisome signs and symptoms of infection or injury to the area, and is educated that he should call us for reassessment if he begins to experience any of these Follow-up as needed with any acute concerns Orders: Orders XR ankle RT min 3V 03/02/25 M25.571 - Pain in right ankle and joints of right foot Coding Level of Care Code Est Pt Level 3 (22517) Diagnoses Closed fracture of lateral malleolus of right ankle S82.61XA
[2025-03-02 13:44] VITALS: BMI 39.0
== END 2025-03-02 14:48 | disposition home or self-care (01) ==
LOC: HO.HOS 13:18
DX: S82.61XD Displaced fracture of lateral malleolus of right fibula, subsequent encounter for closed fracture with routine healing (principal); Z48.89 Encounter for other specified surgical aftercare
CPT/HCPCS: 99213

== ENCOUNTER → 2025-03-02 13:21 | Outpatient (BNV) | payer OTHER, SELFPAY | PROVIDERS: Visit Provider Radiology Diagnostic Radiology | DX: M25.571 Pain in right ankle and joints of right foot (principal) | CPT/HCPCS: 73610 ==